=== PATIENT | female | born 1975 | race Caucasian/White ===

== ENCOUNTER 2016-11-12 07:56 | Emergency (ER) | payer BC ==
[2016-11-12 08:26] VITALS: RESP 18
--- NOTE | 2016-11-12 08:33 | ED ---
Extremity Problem HPI - General Chief complaint: Extremity Problem,Nontraumatic Stated complaint: Rt leg pain and swollen Time Seen by Provider: 11/12/16 08:27 Source: patient, RN notes reviewed Mode of arrival: wheelchair Limitations: no limitations - History of Present Illness Initial comments: 41-year-old female patient presents to emergency department today for complaints of pain in her right calf on the right lateral side. Patient states about a month ago she banged her leg, developed a significant bruise, and has had some discomfort since. Patient states starting yesterday the pain has worsened, her leg has developed a linear, reddened area, and she is concerned for blood clot. Patient states that she has had a superficial venous thrombosis in the past, and is unsure if she's had a DVT. Patient states pain worsens with walking or when she bears weight on the leg. Patient states the area is tender to the touch. Patient denies any headache, dizziness, weakness, chest pain, shortness of breath, abdominal pain, nausea, vomiting, constipation , diarrhea, dysuria, urinary frequency, urinary urgency. She denies any numbness or tingling to her right leg or foot. She denies any fever or chills. Patient denies need for pain medication at this time. - Related Data Previous Rx's Medication Instructions Recorded Ibuprofen [Motrin] 600 mg PO Q8HR PRN #30 tab 11/12/16 Allergies Allergy/AdvReac Type Severity Reaction Status Date / Time codeine Allergy Dyspnea Verified 11/12/16 08:26 Penicillins Allergy Rash/Hives Verified 11/12/16 08:26 Review of Systems ROS Statement: Those systems with pertinent positive or pertinent negative responses have been documented in the HPI. ROS Other: All systems not noted in ROS Statement are negative. Past Medical History Past Medical History: Deep Vein Thrombosis (DVT), GERD/Reflux Additional Past Medical History / Comment(s): sjogrens disease, hx migraines, pleurisy, DVY 2007 History of Any Multi-Drug Resistant Organisms: None Reported Past Surgical History: Appendectomy Additional Past Surgical History / Comment(s): lap band- later removed, D&C, rt leg vein stripping and laser, leep procedure Past Anesthesia/Blood Transfusion Reactions: Motion Sickness Past Psychological History: No Psychological Hx Reported Smoking Status: Never smoker Past Alcohol Use History: None Reported Past Drug Use History: None Reported - Past Family History Mother Family Medical History: No Reported History General Exam Limitations: no limitations General appearance: alert, in no apparent distress Eye exam: Present: normal appearance, PERRL, EOMI. Absent: scleral icterus, conjunctival injection, periorbital swelling ENT exam: Present: normal exam, normal oropharynx, mucous membranes moist Neck exam: Present: normal inspection. Absent: tenderness, meningismus, lymphadenopathy Respiratory exam: Present: normal lung sounds bilaterally. Absent: respiratory distress, wheezes, rales, rhonchi, stridor Cardiovascular Exam: Present: regular rate, normal rhythm, normal heart sounds. Absent: systolic murmur, diastolic murmur, rubs, gallop, clicks GI/Abdominal exam: Present: soft, normal bowel sounds. Absent: distended, tenderness, guarding, rebound, rigid Extremities exam: Present: full ROM, normal capillary refill, calf tenderness ( Right lateral, linear area of induration). Absent: pedal edema Neurological exam: Present: alert, oriented X3, CN II-XII intact Psychiatric exam: Present: normal affect, normal mood Skin exam: Present: warm, dry, intact, normal color. Absent: rash Course Vital Signs 11/12/16 08:23 Temperature 97.8 F Pulse Rate 87 Respiratory 18 Rate Blood Pressure 124/76 O2 Sat by Pulse 98 Oximetry Medical Decision Making - Medical Decision Making 41-year-old female presents emergency department for right calf pain. Patient has a superficial thrombophlebitis. Patient was treated with ibuprofen, compression and warm compressions. Return parameters discussed. Patient will follow-up with Dr. Brown her vascular surgeon if needed.. Disposition Clinical Impression: Superficial thrombophlebitis Disposition: HOME SELF-CARE Condition: Stable Instructions: Superficial Thrombophlebitis (ED) Additional Instructions: Please return to the Emergency Department if symptoms worsen or any other concerns. Prescriptions: Ibuprofen [Motrin] 600 mg PO Q8HR PRN #30 tab PRN Reason: Pain Time of Disposition: 09:18
--- NOTE | 2016-11-12 09:27 | US ---
EXAMINATION TYPE: US venous doppler duplex LE RT DATE OF EXAM: 11/12/2016 9:06 AM COMPARISON: No previous CLINICAL HISTORY: Pain. Area of pain and swelling right calf SIDE PERFORMED: Right VESSELS IMAGED: External Iliac Vein (EIV) Common Femoral Vein Deep Femoral Vein Greater Saphenous Vein * Femoral Vein Popliteal Vein Small Saphenous Vein * Proximal Calf Veins (* superficial vessels) Right Leg: Appears negative for DVT, scanned right calf area of pain/swelling: thrombus seen within superficial vessel IMPRESSION: No evidence of deep venous thrombosis. There is minimal superficial vein thrombosis in t he calf.
[2016-11-12 09:53] VITALS: BP 135/63; PULSE 60; TEMP 98
== END 2016-11-12 09:52 | disposition home or self-care (01) ==
LOC: EC 07:56
DX: I80.01 Phlebitis and thrombophlebitis of superficial vessels of right lower extremity (principal); Z88.5 Allergy status to narcotic agent; Z88.0 Allergy status to penicillin; Z86.718 Personal history of other venous thrombosis and embolism
CPT/HCPCS: 99283

== ENCOUNTER 2017-03-13 14:53 | Emergency (ER) | payer BC ==
[2017-03-13 15:06] VITALS: BP 137/90; PULSE 100; RESP 18; TEMP 98.5
[2017-03-13] MEDS ORDERED: KETOROLAC 60 MG/2 ML VIAL IM STA (15:20)
--- NOTE | 2017-03-13 15:38 | ED ---
General Adult HPI - General Chief complaint: Extremity Injury, Lower Stated complaint: L leg swelling Time Seen by Provider: 03/13/17 15:00 Source: patient, family, RN notes reviewed Mode of arrival: wheelchair Limitations: no limitations - History of Present Illness Initial comments: This is a 41-year-old female presents emergency Department complaining of left calf pain. Patient went to jump and then felt a spasm in her calf and after that the area Hard tender and she was unable to ambulate on that leg. Patient states she did not twist her leg it felt more stiff the pain was in her muscle on the calf. Patient denies any direct blunt trauma. - Related Data Home Medications Medication Instructions Recorded Confirmed Acetaminophen [Tylenol Extra 1,000 mg PO DAILY PRN 03/13/17 03/13/17 Strength] Previous Rx's Medication Instructions Recorded Diazepam [Valium] 5 mg PO Q6H #10 tab 03/13/17 Hydrocodone/Acetaminophen [[place] 1 each PO Q4HR PRN #20 tab 03/13/17 5-325] Ibuprofen [Motrin] 600 mg PO Q6HR PRN #20 tab 03/13/17 Allergies Allergy/AdvReac Type Severity Reaction Status Date / Time codeine Allergy Dyspnea Verified 03/13/17 15:12 Penicillins Allergy Rash/Hives Verified 03/13/17 15:12 Review of Systems ROS Statement: Those systems with pertinent positive or pertinent negative responses have been documented in the HPI. ROS Other: All systems not noted in ROS Statement are negative. Past Medical History Past Medical History: Deep Vein Thrombosis (DVT), GERD/Reflux Additional Past Medical History / Comment(s): sjogrens disease, hx migraines, pleurisy, DVY 2007 History of Any Multi-Drug Resistant Organisms: None Reported Past Surgical History: Appendectomy Additional Past Surgical History / Comment(s): lap band- later removed, D&C, rt leg vein stripping and laser, leep procedure Past Anesthesia/Blood Transfusion Reactions: Motion Sickness Past Psychological History: No Psychological Hx Reported Smoking Status: Never smoker Past Alcohol Use History: None Reported Past Drug Use History: None Reported - Past Family History Mother Family Medical History: No Reported History General Exam - General Exam Comments Initial Comments: GENERAL Patient is well-developed and well-nourished. Patient is in mild distress. EYES Patient's pupils are equal and round. Extraocular motion is intact SKIN Unremarkable NEURO The patient is alert and oriented 3 PYSCH Patient has normal interpersonal interactions. MUSCULOSKELETAL Patient's left calf is tender to touch and mildly swollen on the lateral aspect. Patient has no deficit in the Achilles tendon. Patient does have painful extension of the foot. Limitations: no limitations Course Vital Signs 03/13/17 15:02 Temperature 98.5 F Pulse Rate 100 Respiratory 18 Rate Blood Pressure 137/90 O2 Sat by Pulse 99 Oximetry Procedures - Orthopedic Splinting/Casting Injury #1 Side: left Lower Extremity Injury Location: lower leg Lower Extremity Immobilizer: posterior splint Additional Comments: Short leg splint. Patient's foot was splinted in plantar flexion. Disposition Clinical Impression: Gastrocnemius strain, left Disposition: HOME SELF-CARE Condition: Good Instructions: Muscle Strain (ED) Additional Instructions: Patient should use crutches and be nonweightbearing. Prescriptions: Diazepam [Valium] 5 mg PO Q6H #10 tab Hydrocodone/Acetaminophen [[place] 5-325] 1 each PO Q4HR PRN #20 tab PRN Reason: Pain Ibuprofen [Motrin] 600 mg PO Q6HR PRN #20 tab PRN Reason: For pain Referrals: Raphael Dickerson DO [Doctor of Osteopathic Medicine] - 1-2 days Time of Disposition: 16:09
[2017-03-13] MEDS ORDERED: HYDROmorphone 1 MG/ML 1 ML SYRINGE IM STA (15:41)
[2017-03-13] MEDS ORDERED: DIAZEPAM 5 MG TAB PO STA (15:41)
== END 2017-03-13 16:41 | disposition home or self-care (01) ==
LOC: EC 14:53
DX: S86.812A Strain of other muscle(s) and tendon(s) at lower leg level, left leg, initial encounter (principal); Z88.0 Allergy status to penicillin; Z88.5 Allergy status to narcotic agent; X50.9XXA Other and unspecified overexertion or strenuous movements or postures, initial encounter; Y93.02 Activity, running; Y92.016 Swimming-pool in single-family (private) house or garden as the place of occurrence of the external cause
CPT/HCPCS: 99283; 29515; 96372 ×2; J1885; J1170

== ENCOUNTER → 2017-03-27 | Outpatient (CLI) | payer BC ==
[2017-03-27 14:02] VITALS: BP 133/83; PULSE 78; RESP 20; TEMP 98.2; BMI 37.4
--- NOTE | 2017-03-27 14:22 | P.HPBAR ---
Bariatric H&P - History & Physicial H&P Date: 03/27/17 History & Physicial: Visit/CC: Patient initial contact: Initial weight: Initial weight in pounds: Height: Initial BMI: Last weight: Current weight: Current weight in pounds: Current BMI: [place] body weight (based on NIH guidelines): Excess body weight loss: The patient is a 41 year-old F who presents for Bariatric Assessment. Patient is well known to our service. The patient underwent a lap scopic banding in 2005 for suspected gastric prolapse. She was able to lose weight down to approximately 150 pounds at one point. The patient was then having issues with worsening reflux, dysphagia, odynophagia, and aspiration. She actually during that time was seen by a seniour insight manager and there was some thought that she may have Sjogren's disease. Her band was subsequently removed following that. She has had progressive weight gain and 14 cm time. Only minimal reflux symptoms at this point. She jordin interested in sleeve gastrectomy at this point. Does not likely long-term sequela related to the gastric bypass she states. She requires a 6 month supervised weight loss program that she has not started. She did have an upper endoscopy in 2014 showing gastritis. She does have a history of both superficial and deep venous thrombosis in the past. These were typically after venous related procedures Review of Systems The patient denies any acute changes in vision or hearing, no dysphagia or odynophagia, no chest pain or shortness of breath, no dysuria or hematuria, no headache, no runny nose, no rectal bleeding or melena, no unexplained weight loss Past Medical History Past Medical History: Deep Vein Thrombosis (DVT), GERD/Reflux Additional Past Medical History / Comment(s): sjogrens disease, hx migraines, pleurisy, DVY 2007 History of Any Multi-Drug Resistant Organisms: None Reported Past Surgical History: Appendectomy Additional Past Surgical History / Comment(s): lap band- later removed, D&C, rt leg vein stripping and laser, leep procedure Past Anesthesia/Blood Transfusion Reactions: Motion Sickness Past Psychological History: No Psychological Hx Reported Smoking Status: Never smoker Past Alcohol Use History: None Reported Past Drug Use History: None Reported - Past Family History Mother Family Medical History: No Reported History Surgical - Exam Physical exam: General: Well-developed, well-nourished HEENT: Normocephalic, sclerae nonicteric Abdomen: Nontender, nondistended Extremities: No edema Neuro: Alert and oriented Bariatric Assessment & Plan (1) Morbid obesity Narrative/Plan: The options available to Omayra at this point were discussed in detail and these included the gastric bypass in the sleeve gastrectomy. The patient plans to consider this further but in the meanwhile will begin her 6 month supervised weight loss program. We'll plan a upper endoscopy in 4-5 months from now. If the patient is showing any interest in gastric bypass we'll make the appropriate consultations. The risks of the procedure were discussed in detail today but will be repeated with her really. The risks specific to her of DVT, poor weight loss, GERD, and dysphagia related to possible Sjogren's disease were discussed. She is going to consider those risks further. Status: Acute Bariatric Checklist Checklist: Plan: Checklist: EGD: 1. Hiatal hernia: 2. H. Pylori: HgbA1c: Vitamin D: Smoking: Never smoker Primary care physician referral: Psychiatry clearance: Cardiology clearance: Sleep study: Diet journal: VTE risk score: VTE risk level: Rehab needs at discharge:
== END | disposition home or self-care (01) ==
LOC: BARWHC3 13:45
PROVIDERS: ATTEND Surgery
DX: Z01.818 Encounter for other preprocedural examination (principal); E66.01 Morbid (severe) obesity due to excess calories; Z86.718 Personal history of other venous thrombosis and embolism
CPT/HCPCS: 99201

== ENCOUNTER → 2017-05-25 | Outpatient (CLI) | payer BC ==
[2017-05-25 10:23] LABS: Basophils % (A) 1 %; CH 34.7; CHCM 35.2; Eosinophils # (A) 0.1 k/uL (0-0.7); Eosinophils % (A) 2 %; HCT 44.4 % (34.0-46.0); HDW 2.94; HGB 15.2 gm/dL (11.4-16.0); Luc # (Auto) 0.13; Luc % (Auto) 3; Lymphocytes # (A) 1.8 k/uL (1.0-4.8); Lymphocytes % (A) 41 %; MCH 33.9 pg (25.0-35.0); MCHC 34.2 g/dL (31.0-37.0); Mean Platelet Volume 6.8; Monocytes # (A) 0.2 k/uL (0-1.0); Monocytes % (A) 6 %; Neutrophils # (A) 2.1 k/uL (1.3-7.7); Neutrophils % (A) 48 %; RBC 4.49 m/uL (3.80-5.40); RDW 12.6 % (11.5-15.5); WBC 4.3 k/uL (3.8-10.6)
[2017-05-25 10:37] LABS: ALT 30 U/L (9-52); AST 23 U/L (14-36); Alkaline Phosphatase 68 U/L (38-126); Anion Gap 11 mmol/L; Blood Urea Nitrogen 16 mg/dL (7-17); Carbon Dioxide 26 mmol/L (22-30); Chloride 105 mmol/L (98-107); Cholesterol 205 mg/dL (<200); Glucose 94 mg/dL (74-99); HDL Cholesterol 62 mg/dL (40-60); Non-African American GFR(MDRD) >60 (>60 ml/min/1.73 sqM); Sodium 142 mmol/L (137-145); Total Bilirubin 0.7 mg/dL (0.2-1.3); Total Protein 7.7 g/dL (6.3-8.2)
[2017-05-25 12:02] LABS: Erythrocyte Sedimentation Rate 11 mm/hr (0-20)
[2017-05-25 16:46] LABS: ANA w/Reflex to Titer POSITIVE (NEGATIVE)
== END | disposition home or self-care (01) ==
LOC: LABWHC1 08:28
PROVIDERS: ATTEND Internal Medicine
DX: Z00.00 Encounter for general adult medical examination without abnormal findings (principal); G43.909 Migraine, unspecified, not intractable, without status migrainosus; E78.5 Hyperlipidemia, unspecified
CPT/HCPCS: 36415; 80053; 80061; 84439; 84443; 85025; 85652; 86038; 86039

== ENCOUNTER 2017-09-07 10:41 | Day surgery (SDC) | payer BC ==
[2017-09-06 09:08] VITALS: BMI 39.6
[~2017-09-07 10:41] MED LIST: DEXAMETHASONE SOD PHOSPHATE 10 MG/ML 1 ML VIAL IV ONE; ONDANSETRON 4 MG/2 ML VIAL IVP ONE
[2017-09-07 11:05] VITALS: RESP 16; TEMP 97.6
[2017-09-07] MEDS: LACTATED RINGERS 1,000 ML IV SCH ×2 (11:08→12:21)
[2017-09-07] MEDS ORDERED: LIDOCAINE 1% INJ 10MG/ML (20 ML MDV) ONE (12:23)
[2017-09-07] MEDS ORDERED: PROPOFOL 10 MG/ML 20 ML VIAL IV ONE (12:23)
--- NOTE | 2017-09-07 12:28 | P.GSHP ---
History of Present Illness H&P Date: 09/07/17 Chief Complaint: GERD, obesity Patient here today for upper endoscopy. She is interested in proceeding with sleeve gastrectomy. She has considered gastric bypass feels that is too aggressive for her. No abdominal pain currently. Some reflux at times. Past Medical History Past Medical History: Deep Vein Thrombosis (DVT), GERD/Reflux, Neurologic Disorder Additional Past Medical History / Comment(s): sjogrens disease, hx migraines, pleurisy, DVT 2007 History of Any Multi-Drug Resistant Organisms: None Reported Past Surgical History: Appendectomy, Bariatric Surgery Additional Past Surgical History / Comment(s): lap band- later removed, D&C, rt leg vein stripping and laser, leep procedure, COLONOSCOPY AND EGD Past Anesthesia/Blood Transfusion Reactions: Motion Sickness Smoking Status: Never smoker - Past Family History Mother Family Medical History: No Reported History Medications and Allergies Home Medications Medication Instructions Recorded Confirmed Type Amitriptyline HCl 10 mg PO HS 09/06/17 09/06/17 History Rizatriptan Benzoate [Rizatriptan] 10 mg PO DAILY PRN 09/06/17 09/06/17 History Topiramate [Topamax] 25 mg PO BID 09/06/17 09/07/17 History Allergies Allergy/AdvReac Type Severity Reaction Status Date / Time codeine Allergy Dyspnea Verified 09/07/17 11:03 Penicillins Allergy Rash/Hives Verified 09/07/17 11:03 Surgical - Exam Vital Signs Temp Pulse Resp BP Pulse Ox 97.6 F 79 16 145/75 98 09/07/17 11:04 09/07/17 11:04 09/07/17 11:04 09/07/17 11:04 09/07/17 11:04 Physical exam: General: Well-developed, well-nourished HEENT: Normocephalic, sclerae nonicteric Abdomen: Nontender, nondistended Extremities: No edema Neuro: Alert and oriented Assessment and Plan (1) GERD (gastroesophageal reflux disease) Narrative/Plan: Will proceed with upper endoscopy at this time. Current Visit: Yes Status: Acute Code(s): K21.9 - GASTRO-ESOPHAGEAL REFLUX DISEASE WITHOUT ESOPHAGITIS SNOMED Code(s): 339965483
--- NOTE | 2017-09-07 12:41 | P.PCN ---
Date of Procedure: 09/07/17 Procedure(s) Performed: Preoperative Dx: GERD, presurgical Postoperative Dx: Mild gastritis Procedure: EGD with Bx Anesthesia: Sedation Endoscopist: Dr. Valdez Specimens: antrum Endoscopic Procedure: The patient was on the endoscopy table in the left decubitus position. The Olympus gastroscope was inserted into the oropharynx and passed under direct visualization to the region of the third portion of the duodenum. From that point the scope was slowly withdrawn inspecting all surfaces carefully. There were no neoplastic inflammatory or polypoid lesions throughout the duodenum. The pylorus was widely patent. The stomach was carefully inspected. There was mild gastritis present. A biopsy of the antrum took place to rule out H. pylori. retroflexion revealed Evidence of a previous band plication. No hiatal hernia was seen. The esophagus was then carefully examined. There were no neoplastic inflammatory or polypoid lesions throughout the visualized esophagus. The patient was then taken to the recovery room in stable condition per anesthesia guidelines. Recommendations: await biopsy results. Follow-up in the bariatric center.
[2017-09-07 13:11] VITALS: BP 130/69; PULSE 76
== END 2017-09-07 13:26 | disposition home or self-care (01) ==
LOC: ORWHC2ENDO 10:41
PROVIDERS: ATTEND Surgery
DX: K29.70 Gastritis, unspecified, without bleeding (principal); E66.9 Obesity, unspecified; Z68.39 Body mass index [BMI] 39.0-39.9, adult; M35.00 Sjogren syndrome, unspecified; Z86.718 Personal history of other venous thrombosis and embolism; Z87.09 Personal history of other diseases of the respiratory system; Z79.899 Other long term (current) drug therapy; Z88.5 Allergy status to narcotic agent; Z88.0 Allergy status to penicillin
CPT/HCPCS: 81025; 88305; 88342; 43239; J1100; J2405; J2001; J2704

== ENCOUNTER → 2017-09-10 | Outpatient (CLI) | payer BC ==
[2017-09-10 13:26] VITALS: BMI 40.1
== END | disposition home or self-care (01) ==
LOC: BARWHC3 08:47
PROVIDERS: ATTEND Surgery
DX: E66.01 Morbid (severe) obesity due to excess calories (principal); Z68.41 Body mass index [BMI] 40.0-44.9, adult; Z71.3 Dietary counseling and surveillance
CPT/HCPCS: 97804

== ENCOUNTER → 2017-10-02 | Outpatient (CLI) | payer BC ==
[2017-10-02 14:31] VITALS: BP 154/77; PULSE 90; RESP 16; BMI 39.5
--- NOTE | 2017-10-02 14:58 | P.BASOAP ---
Subjective Progress Note Date: 10/02/17 Principal diagnosis: Morbid obesity Patient returns after recent upper endoscopy. She remains very excited about upcoming sleeve gastrectomy. Her upper endoscopy showed gastritis. H. pylori negative. She is tentatively scheduled for sleeve gastrectomy on 11/05. No new symptoms or medical issues. Objective - Vital Signs Vital signs: Vital Signs Temp Pulse 90 10/02/17 14:27 Resp 16 10/02/17 14:27 BP 154/77 10/02/17 14:27 Pulse Ox Intake & Output 10/01/17 10/02/17 10/02/17 18:59 06:59 18:59 Weight 109.429 kg - Exam Abdomen: Soft, nontender, nondistended Assessment/Plan (1) Morbid obesity Narrative/Plan: Will tentatively plan sleeve gastrectomy on 11/05. The risk profile form was reviewed with her in detail. The risks of bleeding, infection, stenosis, stricture, leak, abscess, fistula formation, peritonitis, poor weight loss, reflux, vomiting, conversion to an open procedure, aborting sleeve gastrectomy, MS, PE, DVT, and were discussed. The patient understands and wishes to proceed. Plan: Date: 10/02/17 Initial Weight: 103.691 kg Initial BMI: 37.4 Current Weight: 109.429 kg Current BMI: 39.5 Type of Surgery: Total Volume in Band: Previous Volume: Volume Removed: Volume Added: Band Size:
== END | disposition home or self-care (01) ==
LOC: BARWHC3 13:49
PROVIDERS: ATTEND Surgery
DX: E66.01 Morbid (severe) obesity due to excess calories (principal); Z01.812 Encounter for preprocedural laboratory examination; Z68.39 Body mass index [BMI] 39.0-39.9, adult
CPT/HCPCS: 99211

== ENCOUNTER → 2017-10-20 | Outpatient (CLI) | payer BC ==
[2017-10-20 13:07] LABS: Basophils % (A) 0 %; Eosinophils # (A) 0.1 k/uL (0-0.7); Eosinophils % (A) 1 %; Lymphocytes # (A) 1.9 k/uL (1.0-4.8); Lymphocytes % (A) 34 %; MCH 32.4 pg (25.0-35.0); MCHC 34.7 g/dL (31.0-37.0); MCV 93.3 fL (80.0-100.0); Mean Platelet Volume 7.3; Monocytes # (A) 0.3 k/uL (0-1.0); Monocytes % (A) 6 %; Neutrophils # (A) 3.3 k/uL (1.3-7.7); Neutrophils % (A) 58 %; Platelet Count 230 k/uL (150-450); RBC 4.61 m/uL (3.80-5.40); RDW 12.4 % (11.5-15.5); WBC 5.7 k/uL (3.8-10.6)
[2017-10-20 13:16] LABS: ALT 26 U/L (9-52); AST 20 U/L (14-36); Albumin 4.3 g/dL (3.5-5.0); Alkaline Phosphatase 73 U/L (38-126); Anion Gap 9 mmol/L; Blood Urea Nitrogen 15 mg/dL (7-17); Calcium 9.7 mg/dL (8.4-10.2); Carbon Dioxide 27 mmol/L (22-30); Chloride 106 mmol/L (98-107); Glucose 86 mg/dL (74-99); Potassium 4.4 mmol/L (3.5-5.1); Sodium 142 mmol/L (137-145); Total Bilirubin 0.7 mg/dL (0.2-1.3); Total Protein 7.4 g/dL (6.3-8.2)
== END | disposition home or self-care (01) ==
LOC: LABPAT 12:16
PROVIDERS: ATTEND Surgery
DX: Z01.818 Encounter for other preprocedural examination (principal); Z01.812 Encounter for preprocedural laboratory examination
CPT/HCPCS: 36415; 80053; 85025; 93005

== ENCOUNTER 2017-11-05 10:43 | Inpatient (IN) | payer BC ==
[~2017-11-05 10:43] MED LIST changes: +ENOXAPARIN 40 MG/0.4 ML SYRINGE SQ ONE; +MIDAZOLAM 2 MG/2 ML VIAL IV PRN; -ONDANSETRON 4 MG/2 ML VIAL IVP ONE; +SCOPOLAMINE 1.5MG/72HR PATCH TRANSDERM ONE; +ceFAZolin IN SWFI 2 GM/20 ML SYRINGE IVP ONE; +fentaNYL (PF) 50 MCG/ML 2 ML AMP IV PRN
[2017-11-05] MEDS: LACTATED RINGERS 1,000 ML IV SCH (12:00)
[2017-11-05] MEDS ORDERED: LIDOCAINE 1% 20 ML VIAL (10MG/ML) FOR IV START INTRADERMA ONE (12:01)
[2017-11-05] MEDS: ONDANSETRON 4 MG/2 ML VIAL IVP ONE ×2 (12:07→16:24)
--- NOTE | 2017-11-05 12:29 | P.GSHP ---
History of Present Illness H&P Date: 11/05/17 Chief Complaint: Morbid obesity Patient presents today for elective sleeve gastrectomy. She is known to our service from previous bariatric procedure. She underwent laparoscopic banding in 2005. She was able to lose significant weight with that. Her band was removed proximally 3 years ago for regurgitation and vomiting. At that time CAT scan suggested the presence of the gastric prolapse. She is not interested in gastric bypass. Recent upper endoscopy performed in August showed no definite hiatal hernia. The previous plication was evident. This did appears to be slightly larger as expected with her prior prolapse. She does have a history of previous superficial and deep venous thrombosis. The DVT was apparently after a vein stripping. No current symptoms of dysphagia. Questionable history of Sjogren's in the past. Past Medical History Past Medical History: Deep Vein Thrombosis (DVT), GERD/Reflux, Neurologic Disorder Additional Past Medical History / Comment(s): sjogrens disease, hx migraines, pleurisy, DVT 2007 History of Any Multi-Drug Resistant Organisms: None Reported Past Surgical History: Appendectomy, Bariatric Surgery Additional Past Surgical History / Comment(s): lap band- later removed, D&C, rt leg vein stripping and laser, leep procedure, COLONOSCOPY AND EGD Past Anesthesia/Blood Transfusion Reactions: Motion Sickness Smoking Status: Never smoker - Past Family History Mother Family Medical History: No Reported History Medications and Allergies Home Medications Medication Instructions Recorded Confirmed Type Amitriptyline HCl 10 mg PO HS PRN 09/06/17 11/05/17 History Rizatriptan Benzoate [Rizatriptan] 10 mg PO DAILY PRN 09/06/17 11/05/17 History Acetaminophen [Tylenol] 500 mg PO Q4-6H PRN 10/30/17 11/05/17 History Multivitamin/Iron/Folic Acid 1 each PO DAILY 10/30/17 10/30/17 History [Centrum Adults Tablet] Allergies Allergy/AdvReac Type Severity Reaction Status Date / Time codeine Allergy Dyspnea Verified 10/30/17 14:25 Penicillins Allergy Rash/Hives Verified 10/30/17 14:25 Surgical - Exam Vital Signs Temp Pulse Resp BP Pulse Ox 96.5 F L 77 16 163/95 99 11/05/17 11:41 11/05/17 11:41 11/05/17 11:41 11/05/17 11:41 11/05/17 11:41 Physical exam: General: Well-developed, well-nourished HEENT: Normocephalic, sclerae nonicteric Abdomen: Nontender, nondistended Extremities: No edema Neuro: Alert and oriented Assessment and Plan (1) Morbid obesity Narrative/Plan: Will proceed with sleeve gastrectomy at this time. The risks of bleeding, infection, stenosis, stricture, leak, abscess, fistula formation, peritonitis, poor weight loss, reflux, vomiting, conversion to an open procedure, aborting sleeve gastrectomy, AR, PE, DVT, and were discussed. The patient understands and wishes to proceed. Current Visit: No Status: Acute Code(s): E66.01 - MORBID (SEVERE) OBESITY DUE TO EXCESS CALORIES SNOMED Code(s): 492599958
[2017-11-05] MEDS ORDERED: HYDROmorphone (PF) 1 MG/ML ONE (13:16)
[2017-11-05] MEDS ORDERED: LIDOCAINE 1% INJ 10MG/ML (20 ML MDV) ONE (13:16)
[2017-11-05] MEDS ORDERED: GLYCOPYRROLATE 0.2 MG/ML 2 ML VIAL ONE (13:16)
[2017-11-05] MEDS ORDERED: NEOSTIGMINE 1 MG/ML 10 ML VIAL ONE (13:16)
[2017-11-05] MEDS ORDERED: fentaNYL (PF) 50 MCG/ML 2 ML AMP ONE (13:16)
[2017-11-05] MEDS ORDERED: ROCURONIUM BROMIDE 10 MG/ML 10 ML VIAL IV ONE (13:16)
[2017-11-05] MEDS ORDERED: PROPOFOL 10 MG/ML 20 ML VIAL IV ONE (13:16)
[2017-11-05] MEDS ORDERED: MIDAZOLAM 2 MG/2 ML VIAL ONE (13:16)
[2017-11-05] MEDS ORDERED: BUPIVACAINE (PF) 0.25% 30 ML VIAL SQ ONE (13:42)
[2017-11-05] MEDS ORDERED: LACTATED RINGERS 1,000 ML IV ONE (14:27)
[2017-11-05] MEDS ORDERED: WATER IRRIGATION ONE ×2 (15:29)
[2017-11-05] MEDS ORDERED: METHYLENE BLUE IRRIGATION ONE ×2 (15:29)
[2017-11-05] MEDS ORDERED: DEXTROSE 5% IRRIGATION ONE ×2 (15:29)
[2017-11-05] MEDS ORDERED: NALOXONE 0.4 MG/ML 1 ML VIAL IV PRN (16:05)
[2017-11-05] MEDS ORDERED: MORPHINE SULFATE/PF 10MG/10ML VL IVP PRN (16:05)
[2017-11-05] MEDS ORDERED: HYOSCYAMINE ORAL DROPS 1.875 MG/15 ML BOTTLE PO PRN (16:05)
[2017-11-05] MEDS ORDERED: SIMETHICONE 40 MG/0.6 ML DROPS 2,000 MG/30 ML BOTTLE PO PRN (16:05)
[2017-11-05] MEDS ORDERED: diphenhydrAMINE 50 MG/ML 1 ML VIAL IVP PRN (16:05)
--- NOTE | 2017-11-05 16:12 | P.OP ---
Date of Procedure: 11/05/17 Procedure(s) Performed: PREOPERATIVE DIAGNOSIS: Morbid obesity POSTOPERATIVE DIAGNOSIS: Same PROCEDURE: Laparoscopic sleeve gastrectomy SURGEON: José Miguel EBL: Minimal ANESTHESIA: General COMPLICATIONS: None OPERATIVE PROCEDURE: Patient was placed in the operating table in the supine position. She was placed under general anesthesia at that time. The abdomen was prepped and draped in sterile fashion after the patient was placed in lithotomy. A 5 mm optical trocar was used to enter the abdominal cavity in the left upper quadrant. Insufflation took place to 15 millimeters mercury. An additional right subxiphoid 5 mm trocar was then placed under direct visualization and then removed. 2 additional 5 mm trochars were placed in the right upper quadrant and left upper quadrant under direct visualization and a 15 mm trocar in the supraumbilical location. The liver was retracted using a medium Luigi liver retractor through the right subxiphoid trocar site. There were minimal adhesions between the prior gastric band site in the left lobe of the liver which were lysed sharply. The patient's gastric plication was somewhat densely closed although able to be mobilized using a combination of blunt dissection and sharp dissection. The hiatus was inspected. The patient had no visible hiatal hernia At that point I moved to the mid aspect of the greater curvature the stomach. The short gastric vasculature was divided using a LigaSure device proximally. I then switched and divided the short gastrics distally to a 3-4 cm from the pylorus. The dissection took place up to the left diaphragmatic crura at that point. The posterior short gastrics were likewise divided using the LigaSure device. Once the stomach was fully mobilized the blunt tipped 40-Montserratian bougie dilator was advanced into the stomach and advanced all the way to the prepyloric location. A black echelon 60 stapler was utilized and fired tangentially across the antrum taking care to avoid narrowing at the incisura angularis. Subsequent firings of the stapler took place. A total of 5 green echelon 60 staplers with seam guard took place proximally staying on the outer edge of our dilator. The oral gastric tube was reinserted. The stomach was insufflated with approximately 100 mL of methylene blue. No evidence of leak or obstruction was seen. The distal aspect of the sleeve was then reapproximated to the gastrosplenic and gastrocolic ligament using a short running 2-0 strata fix suture. Tisseel fibrin glue was used along the length of the staple line. The stomach remnant was removed from the 15 mm trocar site without difficulty. The fascia at the 15 more site was closed using interrupted 0 Vicryl sutures with the laparoscopic suture passer and Aldo Raul technique. The insufflation was evacuated. The skin at all 5 incisions were closed using 4-0 Monocryl sutures. Steri-Strips and sterile dressings were then applied. DISPOSITION: Stable to recovery room
[2017-11-05] MEDS ORDERED: PROMETHAZINE INJ 25 MG/ML 1 ML VIAL IVPB ONE (17:05)
[2017-11-05] MEDS ORDERED: ACETAMINOPHEN IV (For NPO) 1,000 MG in EMPTY BAG 1 BAG IVPB ONE (18:30)
[2017-11-05] MEDS: KETOROLAC 30 MG/ML 1 ML VIAL IVP SCH ×2 (21:11→23:41)
[2017-11-05] MEDS: ALBUTEROL NEBULIZED 2.5 MG/3 ML INHALATION SCH (21:15)
[2017-11-05] MEDS: 0.9% NACL WITH KCL 20 MEQ/L 1,000 ML IV SCH (21:42)
[2017-11-06] MEDS: ONDANSETRON 4 MG/2 ML VIAL IVP PRN ×3 (03:07→20:32)
[2017-11-06] MEDS: 0.9% NACL WITH KCL 20 MEQ/L 1,000 ML IV SCH (03:10)
[2017-11-06] MEDS: LACTATED RINGERS 1,000 ML IV SCH (05:38)
[2017-11-06] MEDS: KETOROLAC 30 MG/ML 1 ML VIAL IVP SCH ×4 (05:41→23:27)
[2017-11-06 07:14] LABS: Anion Gap 14 mmol/L; Blood Urea Nitrogen 11 mg/dL (7-17); Calcium 9.2 mg/dL (8.4-10.2); Carbon Dioxide 19 mmol/L (22-30); Chloride 106 mmol/L (98-107); Magnesium 1.7 mg/dL (1.6-2.3); Phosphorus 3.7 mg/dL (2.5-4.5); Potassium 4.2 mmol/L (3.5-5.1); Sodium 139 mmol/L (137-145)
[2017-11-06] MEDS: ENOXAPARIN 40 MG/0.4 ML SYRINGE SQ SCH ×2 (07:21→21:23)
[2017-11-06 07:39] LABS: Basophils % (A) 0 %; Eosinophils % (A) 0 %; HGB 14.3 gm/dL (11.4-16.0); Lymphocytes # (A) 1.3 k/uL (1.0-4.8); Lymphocytes % (A) 16 %; MCH 32.6 pg (25.0-35.0); MCHC 35.8 g/dL (31.0-37.0); MCV 91.1 fL (80.0-100.0); Mean Platelet Volume 7.8; Monocytes # (A) 0.5 k/uL (0-1.0); Monocytes % (A) 6 %; Neutrophils % (A) 77 %; Platelet Count 195 k/uL (150-450); RBC 4.39 m/uL (3.80-5.40); RDW 12.3 % (11.5-15.5); WBC 7.9 k/uL (3.8-10.6)
[2017-11-06] MEDS: ALBUTEROL NEBULIZED 2.5 MG/3 ML INHALATION SCH ×4 (10:00→22:00)
--- NOTE | 2017-11-06 11:20 | FL ---
EXAMINATION TYPE: FL UGI DATE OF EXAM: 11/06/2017 LIMITED UGI: CLINICAL HISTORY: History of lap band for 10 years removed 2014 with gastric sleeve surgery yesterda y. TECHNIQUE: Limited esophagram is performed utilizing 50 oz of Omnipaque 350. A total of 78 seconds o f fluoroscopic time was utilized during procedure. 15 spot images were saved. COMPARISON: None. FINDINGS: The patient swallowed contrast without difficulty or delay. Esophageal peristalsis and mo tility proximally are within normal limits. There is delay in flow of contrast at diaphragmatic hiatu s with small irregular outpouching or gastric diverticulum along the left lateral margin identified. Contrast pools in distal esophagus which is dilated with reflux into mid esophagus. Finding presumed related to having lap band for 10 years. There is eventual flow across diaphragmatic hiatus and subse quent good flow at proximal and distal anastomosis of sleeve into remnant antrum and duodenal sweep. No contrast extravasation to suggest leak is identified. Patient remained fairly asymptomatic during procedure. Patient became nauseous after procedure. IMPRESSION: No evidence of leak or significant obstruction at sleeve status post recent gastric sleev e surgery yesterday.
[2017-11-06] MEDS ORDERED: HYDROmorphone 4 MG TABLET PO PRN (11:41)
[2017-11-06] MEDS: PANTOPRAZOLE 40 MG/10 ML VIAL IV SCH (11:45)
[2017-11-06 14:43] VITALS: RESP 16
[2017-11-06 15:00] VITALS: BMI 36.6
--- NOTE | 2017-11-06 15:26 | P.CNPUL ---
History of Present Illness Consult date: 11/06/17 Requesting physician: uCrtis Valdez Reason for consult: other Chief complaint: Laparoscopic sleeve gastrectomy for morbid obesity History of present illness: Omayra is a 42-year-old white female patient that follows with Dr. Marroquin for primary care services, has a past medical history of morbid obesity, with previous laparoscopic banding in 2006 subsequent removal of the band 3 years ago for regurgitation and vomiting. Other medical history includes DVTs, GERD/ reflux, Sjogren's disease, cerebral meningioma and history of MTHFR mutation. Patient is a lifetime nonsmoker, does not have any underlying chronic lung disease, is not on home oxygen or inhalers or nebulizers. After removal of the gastric band, patient has been struggling with significant weight gain and was unable to lose weight despite trying different modalities of diets and exercise. Patient underwent laparoscopic sleeve gastrectomy by Dr. Valdez on , tolerated the procedure well and we are seeing the patient today for medical management. Patient is stable, denies any acute distress, she states yesterday postop she was having some incisional discomfort in her abdomen, today her pain is better controlled. She is able to achieve [id number] on her incentive spirometry. She is on room air, denies any dyspnea, denies any chest pain. She is afebrile, hemodynamically stable. She is tolerating ice chips, has not passed any gas yet. Abdominal laparoscopic incisions are clean dry and intact, Steri-Strips are intact, there incisions are covered with surgical dressings. Patient is on Lovenox for DVT prophylaxis, he is receiving Toradol, Dilaudid for pain control. She is on nebulized treatments 4 times a day, IV Kefzol, Protonix. She is doing very well, she is getting ready to get up and ambulate. Denies any specific complaints today. GI series from this morning shows no evidence of leak or significant obstruction at sleeve status post gastric sleeve surgery. Review of Systems All systems: negative Constitutional: Denies chills, Denies fever Eyes: denies blurred vision, denies pain Ears, nose, mouth and throat: Denies headache, Denies sore throat Cardiovascular: Denies chest pain, Denies shortness of breath Respiratory: Denies cough Gastrointestinal: Denies abdominal pain, Denies diarrhea, Denies nausea, Denies vomiting Genitourinary: Denies dysuria, Denies hematuria Musculoskeletal: Denies myalgias Integumentary: Denies pruritus, Denies rash Neurological: Denies numbness, Denies weakness Psychiatric: Denies anxiety, Denies depression Endocrine: Denies fatigue, Denies weight change Past Medical History Past Medical History: Deep Vein Thrombosis (DVT), GERD/Reflux, Neurologic Disorder Additional Past Medical History / Comment(s): sjogrens disease, hx migraines, pleurisy, DVT 2007 History of Any Multi-Drug Resistant Organisms: None Reported Past Surgical History: Appendectomy, Bariatric Surgery Additional Past Surgical History / Comment(s): lap band- later removed, D&C, rt leg vein stripping and laser, leep procedure, COLONOSCOPY AND EGD Past Anesthesia/Blood Transfusion Reactions: Motion Sickness Past Psychological History: No Psychological Hx Reported Smoking Status: Never smoker Past Alcohol Use History: Occasional Past Drug Use History: None Reported - Past Family History Mother Family Medical History: No Reported History Medications and Allergies Home Medications Medication Instructions Recorded Confirmed Type Amitriptyline HCl 10 mg PO HS PRN 09/06/17 11/05/17 History Rizatriptan Benzoate [Rizatriptan] 10 mg PO DAILY PRN 09/06/17 11/05/17 History Acetaminophen [Tylenol] 500 mg PO Q4-6H PRN 10/30/17 11/05/17 History Multivitamin/Iron/Folic Acid 1 tab PO DAILY 10/30/17 11/05/17 History [Centrum Adults Tablet] Bisacodyl [Dulcolax] 5 mg PO DAILY PRN #10 tablet. 11/05/17 Rx Hydrocodone/Acetaminophen [[place] 1 - 2 each PO Q4HR PRN #30 tab 11/05/17 Rx 5-325] Omeprazole [PriLOSEC] 20 mg PO AC-BRKFST #90 cap 11/05/17 Rx Ondansetron Odt [Zofran Odt] 4 mg PO Q8HR PRN #9 tab 11/05/17 Rx Simethicone 40 mg/0.6 ml Drops 40 mg PO PCHS PRN #30 ml 11/05/17 Rx [Mylicon Drops] Allergies Allergy/AdvReac Type Severity Reaction Status Date / Time codeine Allergy Dyspnea Verified 10/30/17 14:25 Penicillins Allergy Rash/Hives Verified 10/30/17 14:25 Physical Exam Vitals: Vital Signs Temp Pulse Pulse Resp BP Pulse Ox Pulse Ox 11/06/17 14:42 98.9 F 71 16 125/78 99 11/06/17 12:36 72 11/06/17 12:27 72 11/06/17 11:15 98.2 F 84 130/78 97 11/06/17 09:33 100 11/06/17 08:30 100 11/06/17 03:20 98.1 F 65 17 133/81 98 11/05/17 21:15 96 11/05/17 20:00 79 132/80 100 11/05/17 19:45 100 135/84 100 11/05/17 19:30 103 H 135/84 100 11/05/17 19:15 85 134/86 100 11/05/17 19:00 98 149/74 100 11/05/17 18:45 100 135/84 100 11/05/17 18:30 95 134/84 100 11/05/17 17:35 72 16 140/73 95 11/05/17 17:20 76 16 132/70 97 11/05/17 17:08 81 16 137/73 94 L 11/05/17 16:53 76 16 136/77 96 11/05/17 16:38 74 16 127/63 98 11/05/17 16:23 91 16 127/63 95 11/05/17 16:08 98 F 87 12 135/79 97 Intake and Output 11/06/17 11/06/17 11/06/17 06:59 14:59 22:59 Intake Total 1200 Balance 1200 Intake: Intake, IV Titration 1200 Amount 0.9% NaCl with KCl 20 Meq 1200 /l 1,000 ml @ 150 mls/hr IV .Q6H40M [facility] Rx#: [id number] Other: # Voids 3 2 Weight 103.1 kg GENERAL EXAM: Alert, pleasant, 42-year-old white female comfortable in no apparent distress. HEAD: Normocephalic/atraumatic. EYES: Normal reaction of pupils, equal size. Conjunctiva pink, sclera white. NOSE: Clear with pink turbinates. THROAT: No erythema or exudates. NECK: No masses, no JVD, no thyroid enlargement, no adenopathy. CHEST: No chest wall deformity. Symmetrical expansion. LUNGS: Equal air entry with no crackles, wheeze, rhonchi or dullness. CVS: Regular rate and rhythm, normal S1 and S2, no gallops, no murmurs, no rubs ABDOMEN: Soft, slightly tender, postsurgical. No hepatosplenomegaly, normal bowel sounds, no guarding or rigidity. Laparoscopic incisions are clean dry and intact, well approximated, Steri-Strips are intact, incisions are covered with surgical dressings, no drainage noted. EXTREMITIES: No clubbing, no edema, no cyanosis, 2+ pulses and upper and lower extremities. MUSCULOSKELETAL: Muscle strength and tone normal. SPINE: No scoliosis or deformity SKIN: No rashes CENTRAL NERVOUS SYSTEM: Alert and oriented -3. No focal deficits, tone is normal in all 4 extremities. PSYCHIATRIC: Alert and oriented -3. Appropriate affect. Intact judgment and insight. Results - Laboratory Findings CBC and BMP: 11/06/17 06:40 11/06/17 06:40 Abnormal lab findings: Abnormal Labs 11/06/17 06:40 Carbon Dioxide 19 L - Diagnostic Findings Additional studies: Upper GI series reviewed Assessment and Plan Plan: Assessment: #1. Morbid obesity, status post laparoscopic sleeve gastrectomy, post-op day 1 #2. History of laparoscopic banding, with subsequent removal of the band due to regurgitation and vomiting #3. GERD/reflux #4. Sjogren's disease #5. Migraine cephalgia with aura #6. Cerebral meningioma #7. History of MTHFR syndrome #8. History of DVT #9. Lifetime nonsmoker Plan: Continue current plan of care, continue nebulized treatments incentive spirometry, continue Kefzol. Patient denies any dyspnea, she is on room air, vital signs are stable. Increase ambulation. Pain control, GI/DVT prophylaxis. Continue to follow I performed a history & physical examination of the patient and discussed their management with my nurse practitioner, Krysta Landry. I reviewed the nurse practitioner's note and agree with the documented findings and plan of care. Lung sounds are clear. The findings and the impression was discussed with the patient. I attest to the documentation by the nurse practitioner. Time with Patient: Less than 30
--- NOTE | 2017-11-06 15:29 | P.PN ---
<Angeli Preston - Last Filed: 11/06/17 15:17> Subjective Progress Note Date: 11/06/17 42-year-old female seen and examined. Patient states she has been up ambulating in the bran several times this morning. Denies any nausea vomiting. Patient states passing gas no stool no difficulty in urinating abdominal surgical incision sites dry abdomen soft. Status post November 05 Laparoscopic sleeve gastrectomy for morbid obesity Objective - Vital Signs Vital signs: Vital Signs Temp 98.9 F 11/06/17 14:42 Pulse 71 11/06/17 14:42 Resp 16 11/06/17 14:42 BP 125/78 11/06/17 14:42 Pulse Ox 99 11/06/17 14:42 Intake & Output 11/05/17 11/06/17 11/06/17 18:59 06:59 18:59 Intake Total 1901 2200 Output Total 15 Balance 1886 2200 Weight 103.1 kg 103.1 kg Intake: IV 1901 Intake, IV Titration 2200 Amount 0.9% NaCl with KCl 20 Meq 2200 /l 1,000 ml @ 150 mls/hr IV .Q6H40M [facility] Rx#: [id number] Output: Estimated Blood Loss 15 Other: # Voids 3 2 - Exam Physical exam Abdomen soft nontender nondistended surgical tenderness appropriate surgical dressings dry states passing gas no stool urinating no difficulty tolerating bariatric clear liquid diet pain medication effective for pain control - Labs CBC & Chem 7: 11/06/17 06:40 11/06/17 06:40 Labs: Abnormal Lab Results - Last 24 Hours (Table) 11/06/17 Range/Units 06:40 Carbon Dioxide 19 L (22-30) mmol/L Assessment and Plan Assessment: Impression Laparoscopic sleeve gastrectomy for morbid obesity done November 05 History of laparoscopic banding in 2005 for weight loss Morbid obesity Plan Continue postop bariatric care Bariatric clear diet as ordered Pain control Increase activity DVT and GI prophylaxis The above impression and plan of care have been discussed and directed by signing physician. Angeli Preston nurse practitioner acting as scribe for signing physician. <Curtis Valdez - Last Filed: 11/06/17 16:21> Objective - Vital Signs Vital signs: Vital Signs Temp 98.9 F 11/06/17 14:42 Pulse 64 11/06/17 16:17 Resp 16 11/06/17 14:42 BP 125/78 11/06/17 14:42 Pulse Ox 99 11/06/17 14:42 Intake & Output 11/05/17 11/06/17 11/06/17 18:59 06:59 18:59 Intake Total 1901 2200 Output Total 15 Balance 188 2200 Weight 103.1 kg 103.1 kg Intake: IV 1901 Intake, IV Titration 2200 Amount 0.9% NaCl with KCl 20 Meq 2200 /l 1,000 ml @ 150 mls/hr IV .Q6H40M [facility] Rx#: [id number] Output: Estimated Blood Loss 15 Other: Voiding Method Toilet # Voids 3 2 - Labs CBC & Chem 7: 11/06/17 06:40 11/06/17 06:40 Labs: Abnormal Lab Results - Last 24 Hours (Table) 11/06/17 Range/Units 06:40 Carbon Dioxide 19 L (22-30) mmol/L Assessment and Plan Assessment: As above. Patient doing well today. Did have some nausea and vomiting last night that is improved currently. Tolerating clears. Upper GI shows no evidence of leak or significant obstruction. Continue ambulation. Continue liquid diet. (1) Morbid obesity Current Visit: Yes Status: Acute Code(s): E66.01 - MORBID (SEVERE) OBESITY DUE TO EXCESS CALORIES SNOMED Code(s): 242778749
[2017-11-06] MEDS: 1: MVI, ADULT NO.4 WITH VIT K 10 ML, THIAMINE 100 MG, FOLIC ACID 1 MG, POTASSIUM CHLORID IV SCH ×12 (16:09)
[2017-11-07] MEDS: 1: MVI, ADULT NO.4 WITH VIT K 10 ML, THIAMINE 100 MG, FOLIC ACID 1 MG, POTASSIUM CHLORID IV SCH ×24 (02:14→17:55)
[2017-11-07] MEDS: KETOROLAC 30 MG/ML 1 ML VIAL IVP SCH ×2 (05:39→11:54)
[2017-11-07] MEDS: ALBUTEROL NEBULIZED 2.5 MG/3 ML INHALATION SCH ×4 (07:27→18:37)
[2017-11-07] MEDS ORDERED: BISACODYL 5 MG TABLET.DR PO PRN (08:00)
[2017-11-07] MEDS: ENOXAPARIN 40 MG/0.4 ML SYRINGE SQ SCH ×2 (08:43→22:29)
[2017-11-07] MEDS: PANTOPRAZOLE 40 MG/10 ML VIAL IV SCH (08:43)
[2017-11-07] MEDS: ONDANSETRON 4 MG/2 ML VIAL IVP PRN (11:54)
--- NOTE | 2017-11-07 12:01 | P.PN ---
Subjective Progress Note Date: 11/07/17 Principal diagnosis: Morbid obesity Patient states she feels better today. Pain is diminished. Much less nausea. She did have 1 episode of emesis to foamy liquid. She is afebrile. Labs are pending. She is tolerated approximate 10 ounces of liquid yesterday. Objective - Vital Signs Vital signs: Vital Signs Temp 98 F 11/07/17 07:00 Pulse 70 11/07/17 11:21 Resp 16 11/07/17 07:00 BP 121/72 11/07/17 07:00 Pulse Ox 97 11/07/17 07:31 Intake & Output 11/06/17 11/07/17 11/07/17 18:59 06:59 18:59 Intake Total 0 3488.333 1200.333 Balance 0 3488.333 1200.333 Weight 103.1 kg Intake: Intake, IV Titration 3008.333 963.333 Amount 0.9% NaCl with KCl 20 Meq 1000 /l 1,000 ml @ 150 mls/hr IV .Q6H40M [facility] Rx#: [id number] Mvi, Adult No.4 with Vit 2008.333 963.333 K 10 ml Thiamine 100 mg Folic Acid 1 mg Potassium Chloride 20 meq In Sodium Chloride 0.9% 1, 000 ml @ 100 mls/hr IV . BY DURATION [facility] Rx#: [id number] Oral 0 480 237 Other: Voiding Method Toilet Toilet Toilet # Voids 2 3 - Exam Abdomen: Soft, nondistended, mild incisional tenderness, incisions clean and dry - Labs CBC & Chem 7: 11/06/17 06:40 11/06/17 06:40 Assessment and Plan (1) Morbid obesity Narrative/Plan: Continue bariatric liquid diet. Continue ambulation. Check morning CBC. Current Visit: Yes Status: Acute Code(s): E66.01 - MORBID (SEVERE) OBESITY DUE TO EXCESS CALORIES SNOMED Code(s): 961985845
[2017-11-07 12:02] LABS: Anion Gap 10 mmol/L; Blood Urea Nitrogen 13 mg/dL (7-17); Carbon Dioxide 21 mmol/L (22-30); Chloride 111 mmol/L (98-107); Glucose 80 mg/dL (74-99); Potassium 3.9 mmol/L (3.5-5.1); Sodium 142 mmol/L (137-145)
--- NOTE | 2017-11-07 13:20 | P.PN ---
Subjective Progress Note Date: 11/07/17 Principal diagnosis: Laparoscopic sleeve gastrectomy for morbid obesity Omayra is a 42-year-old white female patient that follows with Dr. Marroquin for primary care services, has a past medical history of morbid obesity, with previous laparoscopic banding in 2005 subsequent removal of the band 3 years ago for regurgitation and vomiting. Other medical history includes DVTs, GERD/ reflux, Sjogren's disease, cerebral meningioma and history of MTHFR mutation. Patient is a lifetime nonsmoker, does not have any underlying chronic lung disease, is not on home oxygen or inhalers or nebulizers. After removal of the gastric band, patient has been struggling with significant weight gain and was unable to lose weight despite trying different modalities of diets and exercise. Patient underwent laparoscopic sleeve gastrectomy by Dr. Valdez on , tolerated the procedure well and we are seeing the patient today for medical management. Patient is stable, denies any acute distress, she states yesterday postop she was having some incisional discomfort in her abdomen, today her pain is better controlled. She is able to achieve [id number] on her incentive spirometry. She is on room air, denies any dyspnea, denies any chest pain. She is afebrile, hemodynamically stable. She is tolerating ice chips, has not passed any gas yet. Abdominal laparoscopic incisions are clean dry and intact, Steri-Strips are intact, there incisions are covered with surgical dressings. Patient is on Lovenox for DVT prophylaxis, he is receiving Toradol, Dilaudid for pain control. She is on nebulized treatments 4 times a day, IV Kefzol, Protonix. She is doing very well, she is getting ready to get up and ambulate. Denies any specific complaints today. GI series from this morning shows no evidence of leak or significant obstruction at sleeve status post gastric sleeve surgery. On 11/07/2017 patient seen in follow-up. She has been ambulating around the unit, tolerating activity well. Her oxygen is on standby, her pulse ox is 97% on room air, she is able to achieve [id number] on her incentive spirometry today. Lung sounds are clear. Patient is starting to pass flatus. She is tolerating clear liquid diet. Abdominal incisions are clean dry and intact, Steri-Strips are intact. Patient remains on IV Rocephin, nebulized treatments, Lovenox for DVT prophylaxis, Protonix. Her abdominal pain is controlled. No acute events overnight. Anticipate discharge home possibly later today. Objective - Vital Signs Vital signs: Vital Signs Temp 98 F 11/07/17 07:00 Pulse 70 11/07/17 11:21 Resp 16 11/07/17 07:00 BP 121/72 11/07/17 07:00 Pulse Ox 97 11/07/17 07:31 Intake & Output 11/06/17 11/07/17 11/07/17 18:59 06:59 18:59 Intake Total 0 3488.333 1200.333 Balance 0 3488.333 1200.333 Weight 103.1 kg Intake: Intake, IV Titration 3008.333 963.333 Amount 0.9% NaCl with KCl 20 Meq 1000 /l 1,000 ml @ 150 mls/hr IV .Q6H40M [facility] Rx#: [id number] Mvi, Adult No.4 with Vit 2008.333 963.333 K 10 ml Thiamine 100 mg Folic Acid 1 mg Potassium Chloride 20 meq In Sodium Chloride 0.9% 1, 000 ml @ 100 mls/hr IV . BY DURATION [facility] Rx#: [id number] Oral 0 480 237 Other: Voiding Method Toilet Toilet Toilet # Voids 2 3 - Exam GENERAL EXAM: Alert, pleasant, 42-year-old white female comfortable in no apparent distress. HEAD: Normocephalic/atraumatic. EYES: Normal reaction of pupils, equal size. Conjunctiva pink, sclera white. NOSE: Clear with pink turbinates. THROAT: No erythema or exudates. NECK: No masses, no JVD, no thyroid enlargement, no adenopathy. CHEST: No chest wall deformity. Symmetrical expansion. LUNGS: Equal air entry with no crackles, wheeze, rhonchi or dullness. CVS: Regular rate and rhythm, normal S1 and S2, no gallops, no murmurs, no rubs ABDOMEN: Soft, slightly tender, postsurgical. No hepatosplenomegaly, normal bowel sounds, no guarding or rigidity. Laparoscopic incisions are clean dry and intact, well approximated, Steri-Strips are intact, incisions are covered with surgical dressings, no drainage noted. EXTREMITIES: No clubbing, no edema, no cyanosis, 2+ pulses and upper and lower extremities. MUSCULOSKELETAL: Muscle strength and tone normal. SPINE: No scoliosis or deformity SKIN: No rashes CENTRAL NERVOUS SYSTEM: Alert and oriented -3. No focal deficits, tone is normal in all 4 extremities. PSYCHIATRIC: Alert and oriented -3. Appropriate affect. Intact judgment and insight. - Labs CBC & Chem 7: 11/06/17 06:40 11/07/17 11:02 Labs: Abnormal Lab Results - Last 24 Hours (Table) 11/07/17 Range/Units 11:02 Chloride 111 H (98-107) mmol/L Carbon Dioxide 21 L (22-30) mmol/L Assessment and Plan Plan: Assessment: #1. Morbid obesity, status post laparoscopic sleeve gastrectomy, post-op day 2 #2. History of laparoscopic banding, with subsequent removal of the band due to regurgitation and vomiting #3. GERD/reflux #4. Sjogren's disease #5. Migraine cephalgia with aura #6. Cerebral meningioma #7. History of MTHFR syndrome #8. History of DVT #9. Lifetime nonsmoker Plan: Continue current plan of care, continue encouraging activity, ambulation, incentive spirometry. Patient remains stable, vital signs are stable. No acute events overnight. Denies any specific complaints. Tolerating clear liquid diet. From medical standpoint patient is stable for discharge home today , once cleared by surgery. Follow-up with Dr. Dumont in the office in 7 days I performed a history & physical examination of the patient and discussed their management with my nurse practitioner, Krysta Landry. I reviewed the nurse practitioner's note and agree with the documented findings and plan of care. Lung sounds are clear. The findings and the impression was discussed with the patient. I attest to the documentation by the nurse practitioner. Time with Patient: Less than 30
[2017-11-07] MEDS ORDERED: HYDROcodone/APAP 5-325MG 1 EACH TAB PO PRN (21:30)
[2017-11-07] MEDS ORDERED: KETOROLAC 30 MG/ML 1 ML VIAL IVP ONE (22:00)
[2017-11-08 06:52] LABS: Basophils % (A) 0 %; Eosinophils # (A) 0.1 k/uL (0-0.7); Eosinophils % (A) 1 %; HCT 35.9 % (34.0-46.0); Lymphocytes # (A) 1.6 k/uL (1.0-4.8); Lymphocytes % (A) 26 %; MCH 33.4 pg (25.0-35.0); MCHC 36.3 g/dL (31.0-37.0); MCV 92.1 fL (80.0-100.0); Mean Platelet Volume 7.7; Monocytes # (A) 0.4 k/uL (0-1.0); Monocytes % (A) 6 %; Neutrophils # (A) 3.8 k/uL (1.3-7.7); Neutrophils % (A) 65 %; Platelet Count 152 k/uL (150-450); RDW 12.5 % (11.5-15.5); WBC 5.9 k/uL (3.8-10.6)
[2017-11-08] MEDS: ALBUTEROL NEBULIZED 2.5 MG/3 ML INHALATION SCH ×2 (07:27→11:13)
[2017-11-08 08:01] VITALS: BP 131/79; TEMP 97.8
[2017-11-08] MEDS: PANTOPRAZOLE 40 MG/10 ML VIAL IV SCH (09:23)
--- NOTE | 2017-11-08 10:40 | P.PN ---
Subjective Progress Note Date: 11/08/17 Principal diagnosis: Laparoscopic sleeve gastrectomy for morbid obesity Omayra is a 42-year-old white female patient that follows with Dr. Marroquin for primary care services, has a past medical history of morbid obesity, with previous laparoscopic banding in 2005 subsequent removal of the band 3 years ago for regurgitation and vomiting. Other medical history includes DVTs, GERD/ reflux, Sjogren's disease, cerebral meningioma and history of MTHFR mutation. Patient is a lifetime nonsmoker, does not have any underlying chronic lung disease, is not on home oxygen or inhalers or nebulizers. After removal of the gastric band, patient has been struggling with significant weight gain and was unable to lose weight despite trying different modalities of diets and exercise. Patient underwent laparoscopic sleeve gastrectomy by Dr. Valdez on , tolerated the procedure well and we are seeing the patient today for medical management. Patient is stable, denies any acute distress, she states yesterday postop she was having some incisional discomfort in her abdomen, today her pain is better controlled. She is able to achieve [id number] on her incentive spirometry. She is on room air, denies any dyspnea, denies any chest pain. She is afebrile, hemodynamically stable. She is tolerating ice chips, has not passed any gas yet. Abdominal laparoscopic incisions are clean dry and intact, Steri-Strips are intact, there incisions are covered with surgical dressings. Patient is on Lovenox for DVT prophylaxis, he is receiving Toradol, Dilaudid for pain control. She is on nebulized treatments 4 times a day, IV Kefzol, Protonix. She is doing very well, she is getting ready to get up and ambulate. Denies any specific complaints today. GI series from this morning shows no evidence of leak or significant obstruction at sleeve status post gastric sleeve surgery. On 11/07/2017 patient seen in follow-up. She has been ambulating around the unit, tolerating activity well. Her oxygen is on standby, her pulse ox is 97% on room air, she is able to achieve [id number] on her incentive spirometry today. Lung sounds are clear. Patient is starting to pass flatus. She is tolerating clear liquid diet. Abdominal incisions are clean dry and intact, Steri-Strips are intact. Patient remains on IV Rocephin, nebulized treatments, Lovenox for DVT prophylaxis, Protonix. Her abdominal pain is controlled. No acute events overnight. Anticipate discharge home possibly later today. On 11/08/2017 patient seen in follow-up. She had an episode of vomiting yesterday, and she was kept for 1 more day for monitoring. Today she denies any acute distress. She is resting in bed, vital signs are stable, she is on room air the pulse ox on the percent. She is afebrile. Hemodynamically stable. Lung sounds are clear, incentive spirometry effort today is [id number]. Abdomen is soft and nontender, laparoscopic incisions are clean dry and intact , Steri-Strips are intact. Patient is tolerating bariatric clear liquid diet. She did have a small bowel movement this morning. Denies any dyspnea, has been ambulating extensively around the unit, and tolerating activity well. From pulmonary standpoint patient is stable for discharge once cleared by surgery. Objective - Vital Signs Vital signs: Vital Signs Temp 97.8 F 11/08/17 07:00 Pulse 80 11/08/17 07:38 Resp 16 11/08/17 00:48 BP 131/79 11/08/17 07:00 Pulse Ox 100 11/08/17 07:00 Intake & Output 11/07/17 11/08/17 11/08/17 18:59 06:59 18:59 Intake Total 1200.333 180 Balance 1200.333 180 Intake: Intake, IV Titration 963.333 Amount Mvi, Adult No.4 with Vit 963.333 K 10 ml Thiamine 100 mg Folic Acid 1 mg Potassium Chloride 20 meq In Sodium Chloride 0.9% 1, 000 ml @ 100 mls/hr IV . BY DURATION [facility] [place] Rx#: [id number] Oral 237 180 Other: Voiding Method Toilet Toilet # Voids 2 # Bowel Movements 1 - Exam GENERAL EXAM: Alert, pleasant, 42-year-old white female comfortable in no apparent distress. HEAD: Normocephalic/atraumatic. EYES: Normal reaction of pupils, equal size. Conjunctiva pink, sclera white. NOSE: Clear with pink turbinates. THROAT: No erythema or exudates. NECK: No masses, no JVD, no thyroid enlargement, no adenopathy. CHEST: No chest wall deformity. Symmetrical expansion. LUNGS: Equal air entry with no crackles, wheeze, rhonchi or dullness. CVS: Regular rate and rhythm, normal S1 and S2, no gallops, no murmurs, no rubs ABDOMEN: Soft, slightly tender, postsurgical. No hepatosplenomegaly, normal bowel sounds, no guarding or rigidity. Laparoscopic incisions are clean dry and intact, well approximated, Steri-Strips are intact, incisions are covered with surgical dressings, no drainage noted. EXTREMITIES: No clubbing, no edema, no cyanosis, 2+ pulses and upper and lower extremities. MUSCULOSKELETAL: Muscle strength and tone normal. SPINE: No scoliosis or deformity SKIN: No rashes CENTRAL NERVOUS SYSTEM: Alert and oriented -3. No focal deficits, tone is normal in all 4 extremities. PSYCHIATRIC: Alert and oriented -3. Appropriate affect. Intact judgment and insight. - Labs CBC & Chem 7: 11/08/17 06:26 11/07/17 11:02 Labs: Abnormal Lab Results - Last 24 Hours (Table) 11/07/17 Range/Units 11:02 Chloride 111 H (98-107) mmol/L Carbon Dioxide 21 L (22-30) mmol/L Assessment and Plan Plan: Assessment: #1. Morbid obesity, status post laparoscopic sleeve gastrectomy, post-op day 3 #2. History of laparoscopic banding, with subsequent removal of the band due to regurgitation and vomiting #3. GERD/reflux #4. Sjogren's disease #5. Migraine cephalgia with aura #6. Cerebral meningioma #7. History of MTHFR syndrome #8. History of DVT #9. Lifetime nonsmoker Plan: Patient had one episode of vomiting yesterday, no nausea or vomiting today. She is tolerating clear barrier to diet. Vital signs are stable, she is on room air, compliant with incentive spirometry, has been ambulating extensively around the unit, tolerating it well. Once cleared by surgery patient is stable for discharge. Follow-up with Dr. Dumont in the office in one week I performed a history & physical examination of the patient and discussed their management with my nurse practitioner, Krysta Landry. I reviewed the nurse practitioner's note and agree with the documented findings and plan of care. Lung sounds are clear. The findings and the impression was discussed with the patient. I attest to the documentation by the nurse practitioner. Time with Patient: Less than 30
--- NOTE | 2017-11-08 10:47 | P.DS ---
<Angeli Preston - Last Filed: 11/08/17 10:33> Providers Date of admission: 11/05/17 11:01 Expected date of discharge: 11/08/17 Attending physician: Curtis Valdez Consults: 11/05/17 16:05 Consult Physician Routine Consulting Provider: Nicolasa Marroquin Consult Reason/Comments: Medical management Do you want consulting provider notified?: Yes Primary care physician: Nicolasa Mar[facility]quin [facility] Course: Pleasant 42-year-old female who presented on the day of admission for an elective sleeve gastrectomy done on November 05 for morbid obesity. Patient has history of previous bariatric procedures. Underwent a lap banding in 2005 was able to lose weight with the procedure. The lap band was removed approximately 3 years ago for symptomatic regurg and vomiting. Patient does have a history of a previous superficial DVT. Involving the right leg. underwent the procedure sleeve gastrectomy on November 05 with no postop events. On the day of discharge patient was ambulatory on the unit tolerating the bariatric clear liquid diet no nausea no vomiting. The white count was down to 5.9 afebrile states had a bowel movement urinating no difficulty. Was felt to be appropriate to be discharged home. Patient states that she was able to drink this morning 320 mL of liquid with no difficulty Impression discharge diagnosis Morbid obesity due to excessive calories History of a DVT right legLaparoscopic sleeve gastrectomy for morbid obesity done November 05 History of laparoscopic banding in 2005 for weight loss history of MTHFR mutation. The above impression and plan of care have been discussed and directed by signing physician. Angeli Preston nurse practitioner acting as scribe for signing physician. Plan - Discharge Summary Discharge Rx Participant: Yes New Discharge Prescriptions: New Bisacodyl [Dulcolax] 5 mg PO DAILY PRN #10 tablet.dr PRN Reason: Constipation Hydrocodone/Acetaminophen [Armington 5-325] 1 - 2 each PO Q4HR PRN #30 tab PRN Reason: pain Omeprazole [PriLOSEC] 20 mg PO AC-BRKFST #90 cap Ondansetron Odt [Zofran Odt] 4 mg PO Q8HR PRN #9 tab PRN Reason: Nausea Simethicone 40 mg/0.6 ml Drops [Mylicon Drops] 40 mg PO PCHS PRN #30 ml PRN Reason: Gas Enoxaparin [Lovenox] 40 mg SQ Q12H #20 syringe No Action Amitriptyline HCl 10 mg PO HS PRN PRN Reason: Insomnia Rizatriptan Benzoate [Rizatriptan] 10 mg PO DAILY PRN PRN Reason: MIGRAINES Acetaminophen [Tylenol] 500 mg PO Q4-6H PRN PRN Reason: Pain Multivitamin/Iron/Folic Acid [Centrum Adults Tablet] 1 tab PO DAILY Discharge Medication List Amitriptyline HCl 10 mg PO HS PRN 09/06/17 [History] Rizatriptan Benzoate [Rizatriptan] 10 mg PO DAILY PRN 09/06/17 [History] Acetaminophen [Tylenol] 500 mg PO Q4-6H PRN 10/30/17 [History] Multivitamin/Iron/Folic Acid [Centrum Adults Tablet] 1 tab PO DAILY 10/30/17 [ History] Bisacodyl [Dulcolax] 5 mg PO DAILY PRN #10 tablet. 11/05/17 [Rx] Hydrocodone/Acetaminophen [Armington 5-325] 1 - 2 each PO Q4HR PRN #30 tab 11/05/17 [Rx] Omeprazole [PriLOSEC] 20 mg PO AC-BRKFST #90 cap 11/05/17 [Rx] Ondansetron Odt [Zofran Odt] 4 mg PO Q8HR PRN #9 tab 11/05/17 [Rx] Simethicone 40 mg/0.6 ml Drops [Mylicon Drops] 40 mg PO PCHS PRN #30 ml [Rx] Enoxaparin [Lovenox] 40 mg SQ Q12H #20 syringe 11/08/17 [Rx] Follow up Appointment(s)/Referral(s): Nicolasa Marroquin MD [Primary Care Provider] - 11/15/17 2:00 pm [facility] [NON-STAFF] - 11/13/17 2:00 pm (Appointment [facility] with Dr[facility]dez [facility]) Patient Instructions/Handouts: Enoxaparin (By injection), Nutrition after Bariatric Surgery (DC), Bowel Management After Bariatric Surgery (DC), Laparoscopic Sleeve Gastrectomy (DC) Discharge Disposition: HOME SELF-CARE <Curtis Valdez - Last Filed: 11/08/17 17:13> - Discharge Diagnosis(es) (1) Morbid obesity Status: Acute Hospital Course: As above. Patient doing much better today. Postoperative upper GI after sleeve gastrectomy showed no leak or obstruction. Initially she was having some dysphagia and intermittent nausea with occasional episodes of vomiting. The symptoms are improved. She is tolerating her liquid diet. She would like to go home today. Will send home with subcutaneous Lovenox injections. Follow- up one week.
[2017-11-08 11:23] VITALS: PULSE 80
[2017-11-08] MEDS: 1: MVI, ADULT NO.4 WITH VIT K 10 ML, THIAMINE 100 MG, FOLIC ACID 1 MG, POTASSIUM CHLORID IV SCH ×6 (12:42)
[2017-11-08] MEDS: ENOXAPARIN 40 MG/0.4 ML SYRINGE SQ SCH (13:14)
[2017-11-08] MEDS ORDERED: KETOROLAC 30 MG/ML 1 ML VIAL IVP ONE (21:33)
== END 2017-11-08 13:28 | disposition home or self-care (01) | DRG 620 ==
LOC: 2ORWHC 11:01 → 3SUR 18:04
PROVIDERS: ADMIT Surgery; ATTEND Surgery
PROC: 0DB64Z3 Excision of Stomach, Percutaneous Endoscopic Approach, Vertical (ICD-10-PCS; principal; 2017-11-05 13:00)
DX: E66.01 Morbid (severe) obesity due to excess calories (principal); E72.12 Methylenetetrahydrofolate reductase deficiency; M35.00 Sjogren syndrome, unspecified; Z68.36 Body mass index [BMI] 36.0-36.9, adult; D32.0 Benign neoplasm of cerebral meninges; K21.9 Gastro-esophageal reflux disease without esophagitis; G43.909 Migraine, unspecified, not intractable, without status migrainosus; Z79.899 Other long term (current) drug therapy; Z86.718 Personal history of other venous thrombosis and embolism; Z88.5 Allergy status to narcotic agent; Z88.0 Allergy status to penicillin
CPT/HCPCS: 74240; 80048; 80051; 81025; 82310; 82565; 83735; 84100; 84520; 85025; 88307; 94640; 94760

== ENCOUNTER → 2017-11-13 | Outpatient (CLI) | payer BC ==
[2017-11-13 14:37] VITALS: BMI 35.4
[2017-11-13 15:04] VITALS: BP 119/63; PULSE 83; TEMP 98.4
--- NOTE | 2017-11-13 16:06 | P.BASOAP ---
Subjective Progress Note Date: 11/13/17 Principal diagnosis: Morbid obesity Patient doing well today. She is 1 week post sleeve gastrectomy. Denies nausea vomiting, no reflux, no pain. She is tolerating 50 ounces of liquids per day. She has lost proximally 30 pounds over the last 2-3 weeks. Objective - Vital Signs Vital signs: Vital Signs Temp 98.4 F 11/13/17 15:02 Pulse 83 11/13/17 15:02 Resp BP 119/63 11/13/17 15:02 Pulse Ox Intake & Output 11/12/17 11/13/17 11/13/17 18:59 06:59 18:59 Weight 97.976 kg - Exam Abdomen: Soft, nondistended, mild incisional tenderness, incisions clean and dry Assessment/Plan (1) Morbid obesity Narrative/Plan: Patient doing well today. Continue dietary and exercise regimen. The patient did not realize she should be taking her antiacid so we will start those now. Follow-up 2-3 weeks for reevaluation. Plan: Date: 11/13/17 Initial Weight: 103.691 kg Initial BMI: 37.4 Current Weight: 97.976 kg Current BMI: 35.4 Type of Surgery: Total Volume in Band: Previous Volume: Volume Removed: Volume Added: Band Size:
== END | disposition home or self-care (01) ==
LOC: BARWHC3 13:52
PROVIDERS: ATTEND Surgery
DX: E66.01 Morbid (severe) obesity due to excess calories (principal); Z68.35 Body mass index [BMI] 35.0-35.9, adult
CPT/HCPCS: 97803; 99211

== ENCOUNTER → 2017-11-27 | Outpatient (CLI) | payer BC ==
[2017-11-27 14:42] VITALS: BP 125/75; PULSE 73; RESP 16; TEMP 98; BMI 35.0
--- NOTE | 2017-11-27 16:20 | P.BASOAP ---
Subjective Progress Note Date: 11/27/17 Principal diagnosis: Morbid obesity Patient doing well today. She has had some difficulties taking an over 35 ounces of liquids daily. Denies dysphagia or odynophagia however. No abdominal pain. Mild constipation although improved. Some reflux symptoms while taking antiacids. Objective - Vital Signs Vital signs: Vital Signs Temp 98 F 11/27/17 14:39 Pulse 73 11/27/17 14:39 Resp 16 11/27/17 14:39 BP 125/75 11/27/17 14:39 Pulse Ox Intake & Output 11/26/17 11/27/17 11/27/17 18:59 06:59 18:59 Weight 97.069 kg - Exam Abdomen: Soft, nontender, nondistended, incision clean and dry Assessment/Plan (1) Morbid obesity Narrative/Plan: Patient will increase fluid intake. If unable to increase fluids further we'll consider IV hydration. Follow-up examination 2 weeks. We'll check one month labs at that time. Plan: Date: 11/27/17 Initial Weight: 103.691 kg Initial BMI: 37.4 Current Weight: 97.069 kg Current BMI: 35.0 Type of Surgery: Total Volume in Band: Previous Volume: Volume Removed: Volume Added: Band Size:
== END | disposition home or self-care (01) ==
LOC: BARWHC3 14:24
PROVIDERS: ATTEND Surgery
DX: Z09 Encounter for follow-up examination after completed treatment for conditions other than malignant neoplasm (principal); K95.09 Other complications of gastric band procedure; K21.9 Gastro-esophageal reflux disease without esophagitis; R63.8 Other symptoms and signs concerning food and fluid intake; E66.01 Morbid (severe) obesity due to excess calories; Z98.84 Bariatric surgery status; Z68.35 Body mass index [BMI] 35.0-35.9, adult
CPT/HCPCS: 99211

== ENCOUNTER → 2017-12-11 | Outpatient (CLI) | payer BC ==
[2017-12-11 16:11] VITALS: BP 131/76; PULSE 70; TEMP 97.9; BMI 32.8
--- NOTE | 2017-12-11 16:13 | P.BASOAP ---
Subjective Progress Note Date: 12/11/17 Principal diagnosis: Morbid obesity Patient doing much better this week. Better oral liquid intake. Protein and take is improving as well although probably in the 30-40 g per day range. Minimal heartburn symptoms. No nausea or vomiting. No pain. Due for one month labs. Objective - Vital Signs Vital signs: Vital Signs Temp 97.9 F 12/11/17 16:10 Pulse 70 12/11/17 16:10 Resp BP 131/76 12/11/17 16:10 Pulse Ox Intake & Output 12/10/17 12/11/17 12/11/17 18:59 06:59 18:59 Weight 95.254 kg - Exam Abdomen: Soft, nontender, nondistended, incisions clean and dry Assessment/Plan (1) Morbid obesity Narrative/Plan: Increase protein intake. Dietary evaluation today. We'll order one month labs. Follow-up evaluation for 6 weeks. Plan: Date: 12/11/17 Initial Weight: 103.691 kg Initial BMI: 35.8 Current Weight: 95.254 kg Current BMI: 32.8 Type of Surgery: Total Volume in Band: Previous Volume: Volume Removed: Volume Added: Band Size:
[2017-12-11 17:08] LABS: HGB 12.4 gm/dL (11.4-16.0); MCH 29.9 pg (25.0-35.0); MCHC 32.5 g/dL (31.0-37.0); MCV 92.1 fL (80.0-100.0); Mean Platelet Volume 7.9; Platelet Count 198 k/uL (150-450); Poikilocytosis Slight; RBC 4.13 m/uL (3.80-5.40); RDW 13.8 % (11.5-15.5); WBC 3.8 k/uL (3.8-10.6)
[2017-12-11 17:18] LABS: ALT 21 U/L (9-52); AST 19 U/L (14-36); Alkaline Phosphatase 65 U/L (38-126); Anion Gap 12 mmol/L; Blood Urea Nitrogen 14 mg/dL (7-17); Calcium 9.6 mg/dL (8.4-10.2); Carbon Dioxide 26 mmol/L (22-30); Chloride 102 mmol/L (98-107); Glucose 78 mg/dL (74-99); Sodium 140 mmol/L (137-145); Total Bilirubin 0.7 mg/dL (0.2-1.3); Total Protein 6.4 g/dL (6.3-8.2)
[2017-12-12 02:09] LABS: Vitamin D 25 Hydroxy 40.8 ng/mL (30.0-100.0)
[2017-12-12 02:16] LABS: Folate, Serum 11.6 ng/mL
== END | disposition home or self-care (01) ==
LOC: BARWHC3 15:47
PROVIDERS: ATTEND Surgery
DX: E66.01 Morbid (severe) obesity due to excess calories (principal); Z68.32 Body mass index [BMI] 32.0-32.9, adult
CPT/HCPCS: 36415; 80053; 82306; 82607; 82746; 83540; 84425; 85027; 97803; 99211

== ENCOUNTER → 2018-01-08 | Outpatient (CLI) | payer BC ==
[2018-01-08 16:02] VITALS: BP 155/70; PULSE 64; RESP 16; TEMP 98.1; BMI 32.4
--- NOTE | 2018-01-08 16:24 | P.BASOAP ---
Subjective Progress Note Date: 01/08/18 Principal diagnosis: Morbid obesity Patient doing well today. Better protein intake. Mild reflux. No vomiting. Still taking antacids daily. Denies fevers. 12 pound weight loss since last visit. Her 1 month labs were reviewed and appear normal. Objective - Vital Signs Vital signs: Vital Signs Temp 98.1 F 01/08/18 15:59 Pulse 64 01/08/18 15:59 Resp 16 01/08/18 15:59 BP 155/70 01/08/18 15:59 Pulse Ox Intake & Output 01/07/18 01/08/18 01/08/18 18:59 06:59 18:59 Weight 89.811 kg - Exam Abdomen: Soft, nontender, nondistended, incisions clean and dry Assessment/Plan (1) Morbid obesity Narrative/Plan: Patient doing well postoperative. Continue dietary and exercise regimen. Follow-up evaluation 4-6 weeks. Continue antiacids for now. Plan: Date: 01/08/18 Initial Weight: 103.691 kg Initial BMI: 37.4 Current Weight: 89.811 kg Current BMI: 32.4 Type of Surgery: Total Volume in Band: Previous Volume: Volume Removed: Volume Added: Band Size:
== END | disposition home or self-care (01) ==
LOC: BARWHC3 15:42
PROVIDERS: ATTEND Surgery
DX: E66.01 Morbid (severe) obesity due to excess calories (principal); Z68.32 Body mass index [BMI] 32.0-32.9, adult
CPT/HCPCS: 99211

== ENCOUNTER → 2018-02-12 | Outpatient (CLI) | payer BC ==
[2018-02-12 14:33] VITALS: BP 126/85; PULSE 70; RESP 16; TEMP 98; BMI 31.6
[2018-02-12 15:08] LABS: HGB 15.2 gm/dL (11.4-16.0); MCH 34.1 pg (25.0-35.0); MCHC 35.3 g/dL (31.0-37.0); MCV 96.6 fL (80.0-100.0); Mean Platelet Volume 7.2; Platelet Count 219 k/uL (150-450); RBC 4.45 m/uL (3.80-5.40); RDW 12.6 % (11.5-15.5); WBC 4.4 k/uL (3.8-10.6)
[2018-02-12 15:19] LABS: ALT 33 U/L (9-52); AST 26 U/L (14-36); Albumin 4.6 g/dL (3.5-5.0); Alkaline Phosphatase 69 U/L (38-126); Anion Gap 11 mmol/L; Blood Urea Nitrogen 12 mg/dL (7-17); Calcium 9.8 mg/dL (8.4-10.2); Carbon Dioxide 28 mmol/L (22-30); Chloride 101 mmol/L (98-107); Glucose 93 mg/dL (74-99); Potassium 4.4 mmol/L (3.5-5.1); Sodium 140 mmol/L (137-145); Total Bilirubin 0.8 mg/dL (0.2-1.3); Total Protein 7.4 g/dL (6.3-8.2)
--- NOTE | 2018-02-12 16:33 | P.BASOAP ---
Subjective Progress Note Date: 02/12/18 Principal diagnosis: Morbid obesity Patient doing well today. 5 pounds weight loss since last visit. Surgery initially in October of this year. Due for three-month lab works. She admits that she is not taking her multivitamins regularly. Still with mild intermittent reflux. No abdominal pain. Objective - Vital Signs Vital signs: Vital Signs Temp 98 F 02/12/18 14:29 Pulse 70 02/12/18 14:29 Resp 16 02/12/18 14:29 BP 126/85 02/12/18 14:29 Pulse Ox Intake & Output 02/11/18 02/12/18 02/12/18 18:59 06:59 18:59 Weight 87.543 kg - Exam Abdomen: Soft, nontender, nondistended - Labs CBC & Chem 7: 02/12/18 14:25 02/12/18 14:25 Assessment/Plan (1) Morbid obesity Narrative/Plan: Will check three-month labs at this time. Encouraged daily intake of multivitamin. Continue antiacids. Plan: Date: 02/12/18 Initial Weight: 103.691 kg Initial BMI: 37.4 Current Weight: 87.543 kg Current BMI: 31.6 Type of Surgery: Total Volume in Band: Previous Volume: Volume Removed: Volume Added: Band Size:
[2018-02-12 19:11] LABS: Folate, Serum 7.6 ng/mL; Vitamin D 25 Hydroxy 31.1 ng/mL (30.0-100.0)
[2018-02-13 01:57] LABS: Hemoglobin A1C 4.6 % (4.0-6.0)
== END | disposition home or self-care (01) ==
LOC: BARWHC3 13:50
PROVIDERS: ATTEND Surgery
DX: E66.01 Morbid (severe) obesity due to excess calories (principal); K91.2 Postsurgical malabsorption, not elsewhere classified; E55.9 Vitamin D deficiency, unspecified; Z68.31 Body mass index [BMI] 31.0-31.9, adult
CPT/HCPCS: 80053; 82306; 82607; 82746; 83036; 83540; 84425; 85027; 99211

== ENCOUNTER → 2018-04-02 | Outpatient (CLI) | payer BC ==
[2018-04-02 14:38] VITALS: BMI 31.4
[2018-04-02 15:28] VITALS: BP 120/70; PULSE 74; TEMP 98.2
--- NOTE | 2018-04-02 17:15 | P.BASOAP ---
Subjective Progress Note Date: 04/02/18 Principal diagnosis: Morbid obesity Patient here today for follow-up visit. She is doing well at this time. She has lost 2 pounds although believes its more than that because she is on her menstrual cycle. Occasional episodes of GERD symptoms. Denies pain. Objective - Vital Signs Vital signs: Vital Signs Temp 98.2 F 04/02/18 15:25 Pulse 74 04/02/18 15:25 Resp BP 120/70 04/02/18 15:25 Pulse Ox Intake & Output 04/01/18 04/02/18 04/02/18 18:59 06:59 18:59 Weight 86.818 kg - Exam Abdomen: Soft, nontender, nondistended Assessment/Plan (1) Morbid obesity Narrative/Plan: Patient doing well today. Continue antiacid therapy. Continue dietary and exercise regimen. Follow-up 6 weeks. We'll check 6 month labs at that time. Plan: Date: 04/02/18 Initial Weight: 103.691 kg Initial BMI: 37.4 Current Weight: 86.818 kg Current BMI: 31.4 Type of Surgery: Total Volume in Band: Previous Volume: Volume Removed: Volume Added: Band Size:
== END | disposition home or self-care (01) ==
LOC: BARWHC3 13:22
PROVIDERS: ATTEND Surgery
DX: E66.01 Morbid (severe) obesity due to excess calories (principal); Z68.31 Body mass index [BMI] 31.0-31.9, adult
CPT/HCPCS: 97803; 99211

== ENCOUNTER → 2018-08-27 | Outpatient (CLI) | payer BC ==
[2018-08-27 15:30] VITALS: BP 149/83; PULSE 76; TEMP 98; BMI 29.9
--- NOTE | 2018-08-27 16:40 | P.BASOAP ---
Subjective Progress Note Date: 08/27/18 Principal diagnosis: Morbid obesity Patient returns today for follow-up visit. Last visit in March. She missed her visit following that. She is overdue for 6 month labs. She has lost an additional 9 pounds since her last visit. She has very mild reflux. Still on antiacids. Denies nausea or vomiting. No pain. Objective - Vital Signs Vital signs: Vital Signs Temp 98.0 F 08/27/18 15:28 Pulse 76 08/27/18 15:28 Resp BP 149/83 08/27/18 15:28 Pulse Ox Intake & Output 08/26/18 08/27/18 08/27/18 18:59 06:59 18:59 Weight 82.917 kg - Exam Abdomen: Soft, nontender, nondistended Assessment/Plan (1) Morbid obesity Narrative/Plan: Patient continues to do well postoperatively. Continue dietary and exercise regimen. Patient exercising daily at this time. Continue antiacids. We'll check 6 month labs at this time. Follow-up 6-8 weeks. Plan: Date: 08/27/18 Initial Weight: 103.691 kg Initial BMI: 37.4 Current Weight: 82.917 kg Current BMI: 29.9 Type of Surgery: Total Volume in Band: Previous Volume: Volume Removed: Volume Added: Band Size:
[2018-08-27 17:25] LABS: HGB 13.6 gm/dL (11.4-16.0); MCH 33.3 pg (25.0-35.0); MCV 95.1 fL (80.0-100.0); Mean Platelet Volume 7.2; Platelet Count 235 k/uL (150-450); RDW 12.3 % (11.5-15.5); WBC 5.5 k/uL (3.8-10.6)
[2018-08-28 03:15] LABS: Folate, Serum 10.7 ng/mL
[2018-08-28 03:25] LABS: Albumin 4.4 g/dL (3.80-4.90); Albumin/Globulin Ratio 2.32 (1.20-2.10); Anion Gap 10.6 mmol/L (4.00-12.00); Calcium 9.3 mg/dL (8.7-10.3); Carbon Dioxide 25.4 mmol/L (21.6-31.8); Globulin 1.9 g/dL (1.6-3.3); Potassium 4.1 mmol/L (3.5-5.5); Total Bilirubin 0.8 mg/dL (0.3-1.2); Total Protein 6.3 g/dL (6.2-8.2)
[2018-08-29 07:04] LABS: Vitamin A 41 ug/dL (38-106)
[2018-08-29 07:16] LABS: Vitamin B1 62 ug/L (38-122)
== END | disposition home or self-care (01) ==
LOC: BARWHC3 15:17
PROVIDERS: ATTEND Surgery
DX: E66.01 Morbid (severe) obesity due to excess calories (principal); D50.8 Other iron deficiency anemias; E55.9 Vitamin D deficiency, unspecified; Z68.29 Body mass index [BMI] 29.0-29.9, adult
CPT/HCPCS: 36415; 80053; 82306; 82607; 82746; 83540; 84425; 84590; 85027; 97803; 99211

== ENCOUNTER → 2018-12-10 | Outpatient (CLI) | payer BC ==
--- NOTE | 2018-12-10 16:02 | P.BASOAP ---
Subjective Progress Note Date: 12/10/18 Principal diagnosis: Morbid obesity Patient returns for bariatric assessment. Doing well at this time. Last seen in August. No longer taking antiacids. Her labs checked last visit looked good. Denies heartburn. No vomiting. 1300 olga per day. Objective - Exam Abdomen: Soft, nontender, nondistended Assessment/Plan (1) Morbid obesity Narrative/Plan: Patient doing well postoperative. Continue dietary and exercise regimen. Follow-up 3 months. We'll check delayed one year labs at that time. Plan: Date: Initial Weight: 103.691 kg Initial BMI: Current Weight: Current BMI: Type of Surgery: Total Volume in Band: Previous Volume: Volume Removed: Volume Added: Band Size:
[2018-12-11 08:27] VITALS: BMI 29.9
[2018-12-11 09:04] VITALS: BP 145/92; PULSE 69; RESP 16; TEMP 98.1
== END | disposition home or self-care (01) ==
LOC: BARWHC3 15:17
PROVIDERS: ATTEND Surgery
DX: E66.01 Morbid (severe) obesity due to excess calories (principal)
CPT/HCPCS: 97803; 99211

== ENCOUNTER → 2023-04-17 | Outpatient (CLI) | payer BC ==
[2023-04-17 08:38] VITALS: BP 144/65; PULSE 69; RESP 17; TEMP 97.8
--- NOTE | 2023-04-17 09:34 | P.HPOB ---
History of Present Illness H&P Date: 04/17/23 Chief Complaint: The patient is here for her routine gynecologic exam and ma mmogram. This is a 47-year-old 021 with an LMP of 04/16/2023. The patient is here to establish with this office. It has been about 8 years since her last pelvic exam. She states her menstrual periods were regular up until about 1-1/2 years ago. During the past year she has skipped about 4 menstrual periods. She has had some mild hot flashes which are tolerable. She has noticed a decrease in sex drive. She states she has had some vaginal dryness but usually is able to achieve orgasm when sexually active. She and her use withdrawal for control. She is otherwise without gynecologic complaints. Review of Systems The patient's weight has been stable over the last year. She denies respiratory, cardiac, or G.I. problems. Past Medical History Past Medical History: GERD/Reflux, Neurologic Disorder Additional Past Medical History / Comment(s): sjogrens disease, hx migraines, pleurisy, superficial venous thrombosis 2007. PAST [employer] HISTORY: She has no history of STDs. History of Any Multi-Drug Resistant Organisms: None Reported Past Surgical History: Appendectomy, Bariatric Surgery Additional Past Surgical History / Comment(s): lap band- later removed, D&C, rt leg vein stripping and laser, leep procedure, COLONOSCOPY AND EGD sleeve gastrectomy 11-05-17 Past Anesthesia/Blood Transfusion Reactions: Motion Sickness Past Psychological History: No Psychological Hx Reported (She denies current depression.) Smoking Status: Never smoker Past Alcohol Use History: Occasional (0-4 per week) Past Drug Use History: None Reported Additional History: She has been since 1999. 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 - Past Family History Mother Family Medical History: Diabetes Mellitus Additional Family Medical History / Comment(s): Maternal grandmother had breast cancer and diabetes. Father Family Medical History: Hypertension Additional Family Medical History / Comment(s): Paternal grandmother had uterine cancer. Medications and Allergies Home Medications Medication Instructions Recorded Confirmed Type Acetaminophen [Tylenol] 500 mg PO Q4-6H PRN 10/30/17 04/17/23 History Allergies Allergy/AdvReac Type Severity Reaction Status Date / Time codeine Allergy Dyspnea Verified 04/17/23 08:35 Penicillins Allergy Rash/Hives Verified 04/17/23 08:35 Exam Vital Signs Temp Pulse Resp BP Pulse Ox 04/17/23 08:35 97.8 F 69 17 144/65 98 Intake and Output 04/16/23 04/17/23 04/17/23 22:59 06:59 14:59 Other: Weight 82.1 kg Height 5 feet 5 inches, weight 181 pounds, BMI 30.1. This is a well-developed well-nourished white female who is alert and oriented times 3 in no acute distress. HEENT: Within normal limits. NECK: Supple without mass or thyromegaly. CHEST AND LUNGS: Clear to auscultation. HEART: Regular rate and rhythm. BREASTS: Are without mass or discharge. AXILLARY EXAM: Negative for adenopathy. BACK: Negative for CVA tenderness. ABDOMEN: Soft, nontender, without palpable masses. PELVIC EXAM: Normal external genitalia. Cervix and vagina appear normal with a small amount of menstrual blood in the back of the vagina. There is no unusual discharge. There is no evidence of prolapse. The uterus is midposition, nongravid size and nontender. There are no palpable adnexal masses or tenderness. RECTAL EXAM: Rectovaginal exam is negative for mass or tenderness and is negati ve for occult blood. EXTREMITIES: Nontender. IMPRESSION: 1. 47-year-old perimenopausal female using withdrawal for control, with normal gynecologic exam. 2. Decreased libido which may be related to the perimenopause and the vaginal dryness may be worsened by her Sjogren's syndrome. PLAN: 1. Pap smear cotest was performed. 2. Self breast awareness was discussed with the patient. We have also discussed symptoms associated with inflammatory breast cancer. 3. Screening mammogram will be done today. 4. Osteoporosis prevention was discussed. I have stressed the importance of adequate calcium, vitamin D and regular exercise. Recommended amounts of calcium and vitamin D were also discussed. 5. The patient will keep a menstrual calendar and call us greater menstrual problems. 6. We have had a long discussion regarding her decreased sex drive. Currently I cannot recommend medications or [id number] products help with this. She will avoid things that seemed to decrease her sex drive. I stressed importance of good nutrition, regular sleep and decreased stress levels. I recommended adequate lubrication for the vaginal dryness. 7. We have discussed control. She understands there is a theoretical risk of her getting since she still has menstrual periods. I have recommended that she consider additional control options including condoms until she has been amenorrheic for at least 12 months. 8. She was advised to return in one year for her annual well woman exam and as needed.
--- NOTE | 2023-04-19 07:37 | MM ---
Reason for Exam: Screening (asymptomatic). Last mammogram was performed 9 year(s) and 4 month(s) ago. Patient History: Menarche at age 10. First Full-Term at age 29. Late child-bearing (after 30). Premenopausal. Maternal grandmother had breast cancer, age 75. Last menstrual period: 02/26/2023 Risk Values: Ileana 5 year model risk: 1.4%. NCI Lifetime model risk: 13.6%. Prior Study Comparison: 12/09/2013 Bilateral Screening Mammogram, [facility]. 12/18/2013 Left Diagnostic Mammogram, [facility]. Tissue Density: There are scattered fibroglandular densities. Findings: Analyzed By CAD. There is no suspicious group of microcalcifications within either breast. No architectural distortion. No new suspicious masses in the left breast. Focal asymmetry at 6:00 in the right breast at middle depth. Overall Assessment: Incomplete: need additional imaging evaluation, BI-RAD 0 Management: Diagnostic Mammogram of the right breast. A clinical breast exam by your physician is recommended on an annual basis and results should be correlated with mammographic findings. [facility] will attempt to contact patient to return for supplemental views and ultrasound if indicated. Note on Ileana scores and lifetime risk: 1. A Ileana score greater than 3% is considered moderate risk. If this is the case, consider specialist referral to assess eligibility for a risk reducing agent. If overall lifetime risk for the development of breast cancer is 20% or higher, the patient may qualify for future screening with alternating mammogram and breast MRI. Electronically signed and approved by: Joseph Denney D.O.
== END ==
LOC: WWCWWP 08:22
PROVIDERS: ATTEND Obstetrics & Gynecology
DX: Z01.419 Encounter for gynecological examination (general) (routine) without abnormal findings (principal); M35.00 Sjogren syndrome, unspecified; K21.9 Gastro-esophageal reflux disease without esophagitis; Z80.3 Family history of malignant neoplasm of breast; Z12.31 Encounter for screening mammogram for malignant neoplasm of breast; Z88.5 Allergy status to narcotic agent; Z88.0 Allergy status to penicillin
CPT/HCPCS: 77063; 77067

== ENCOUNTER → 2023-05-04 | Outpatient (CLI) | payer BC ==
--- NOTE | 2023-05-04 10:35 | MM ---
Reason for Exam: Additional evaluation requested from abnormal screening. Last screening mammogram was performed less than 1 month ago. Patient History: Menarche at age 10. First Full-Term at age 29. Late child-bearing (after 30). Premenopausal. Maternal grandmother had breast cancer, age 75. Risk Values: Ileana 5 year model risk: 1.4%. NCI Lifetime model risk: 13.6%. Prior Study Comparison: 04/17/2023 Bilateral MG 3D screening mammo w/cad, [facility]. Tissue Density: Right: There are scattered fibroglandular densities. Findings: Analyzed By CAD. Density does improve although does persist at the approximate 1:00 position right breast 4.7 cm from the nipple and measuring 6 mm. Ultrasound is recommended. Overall Assessment: Incomplete: need additional imaging evaluation, BI-RAD 0 Management: Diagnostic Breast Ultrasound of the right breast. . Results were given to the patient verbally at the time of exam. Patient should continue monthly self-breast exams. A clinical breast exam by your physician is recommended on an annual basis. This exam should not preclude additional follow-up of suspicious palpable abnormalities. Note on Ileana scores and lifetime risk: 1. A Ileana score greater than 3% is considered moderate risk. If this is the case, consider specialist referral to assess eligibility for a risk reducing agent. 2. If overall lifetime risk for the development of breast cancer is 20% or higher, the patient may qualify for future screening with alternating mammogram and breast MRI. Electronically signed and approved by: Jabier Selby M.D. Radiologis
--- NOTE | 2023-05-04 11:06 | USB ---
Reason for Exam: Additional evaluation requested from abnormal screening. Patient History: Menarche at age 10. First Full-Term at age 29. Late child-bearing (after 30). Premenopausal. Maternal grandmother had breast cancer, age 75. Risk Values: Ileana 5 year model risk: 1.4%. NCI Lifetime model risk: 13.6%. Prior Study Comparison: 12/09/2013 Bilateral Screening Mammogram, [facility]. 12/18/2013 Left Diagnostic Mammogram, [facility]. 04/17/2023 Bilateral MG 3D screening mammo w/cad, [facility]. Findings: The upper section of the breast of the right breast, the axilla of the right breast and the retroareolar of the right breast were scanned. No solid or cystic masses are identified.. Overall Assessment: Probably benign, BI-RAD 3 Management: Diagnostic Mammogram of the right breast in 6 months. A clinical breast exam by your physician is recommended on an annual basis and results should be correlated with mammographic findings. This exam should not preclude additional follow-up of suspicious palpable abnormalities. Results were given to the patient verbally at the time of exam. Electronically signed and approved by: Jabier Selby M.D. Radiologis
== END | disposition home or self-care (01) ==
LOC: RADMAMWWP 10:06
PROVIDERS: ATTEND Obstetrics & Gynecology
DX: R92.8 Other abnormal and inconclusive findings on diagnostic imaging of breast (principal); Z80.3 Family history of malignant neoplasm of breast
CPT/HCPCS: 77061; 77065

== ENCOUNTER → 2025-03-10 | Outpatient (CLI) | payer BC ==
[2025-03-10 16:38] VITALS: BP 135/85; PULSE 64; RESP 16; TEMP 98.7
--- NOTE | 2025-03-10 17:12 | P.HPOB ---
History of Present Illness H&P Date: 03/10/25 Chief Complaint: The patient is here for her routine gynecologic exam This is a 49-year-old -0-2-1 with an LMP of June 2025. She has used withdrawal for control. Menstrual periods have been spacing out more and more. The 9-month stretch of amenorrhea is the longest she has gone without a menstrual period. She does have mild hot flashes and does seem to feel more tired. She is otherwise without gynecologic complaints. Review of Systems She has gained about 7 pounds over the past 2 years. She denies respiratory, cardiac, or GI problems. Past Medical History Past Medical History: GERD/Reflux, Neurologic Disorder Additional Past Medical History / Comment(s): sjogrens disease, hx migraines, pleurisy, superficial venous thrombosis 2007. PAST [employer] HISTORY: She has no history of STDs. History of Any Multi-Drug Resistant Organisms: None Reported Past Surgical History: Appendectomy, Bariatric Surgery Additional Past Surgical History / Comment(s): lap band- later removed, D&C, rt leg vein stripping and laser, leep procedure, COLONOSCOPY AND EGD sleeve gastrectomy 11-05-17 Past Anesthesia/Blood Transfusion Reactions: Motion Sickness Past Psychological History: No Psychological Hx Reported Smoking Status: Never smoker Past Alcohol Use History: Occasional (0-4 drinks per week.) Past Drug Use History: None Reported Additional History: She has been since 1999. 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 - Past Family History Father Family Medical History: Hypertension Additional Family Medical History / Comment(s): Paternal grandmother had uterine cancer. Mother Family Medical History: Diabetes Mellitus Additional Family Medical History / Comment(s): Maternal grandmother had breast cancer and diabetes. Medications and Allergies Home Medications Medication Instructions Recorded Confirmed Type Acetaminophen [Tylenol] 500 mg PO Q4-6H PRN 10/30/17 04/17/23 History Calcium Carbonate [Tums Ultra 470 mg PO 03/10/25 History Strength] Allergies Allergy/AdvReac Type Severity Reaction Status Date / Time codeine Allergy Dyspnea Verified 03/10/25 16:09 Penicillins Allergy Rash/Hives Verified 03/10/25 16:09 Exam Vital Signs Temp Pulse Resp BP Pulse Ox 03/10/25 16:12 98.7 F 64 16 135/85 99 Intake and Output 03/10/25 03/10/25 03/10/25 06:59 14:59 22:59 Other: Weight 85.275 kg Height 5 feet 6 inches, weight 188 pounds, BMI 30.3. This is a well-developed well-nourished white female who is alert and oriented times 3 in no acute distress. HEENT: Within normal limits. NECK: Supple without mass or thyromegaly. CHEST AND LUNGS: Clear to auscultation. HEART: Regular rate and rhythm. BREASTS: Are without mass or discharge. AXILLARY EXAM: Negative for adenopathy. BACK: Negative for CVA tenderness. ABDOMEN: Soft, nontender, without palpable masses. PELVIC EXAM: Normal external genitalia. Cervix and vagina appear normal. There is no unusual discharge. There is no evidence of prolapse. The uterus is midposition, nongravid size and nontender. There are no palpable adnexal masses or tenderness. RECTAL EXAM: Rectovaginal exam is negative for mass or tenderness and is negative for occult blood. EXTREMITIES: Nontender. IMPRESSION: 1. 49-year-old perimenopausal female with increasing oligomenorrhea and mild vasomotor symptoms. 2. Normal gynecologic exam. PLAN: 1. Pap smear was deferred since she had a negative Pap smear cotest on 04/17/2023. 2. Self breast awareness was discussed with the patient. We have also discussed symptoms associated with inflammatory breast cancer. 3. Screening mammogram is scheduled for 03/17/2025 and the order slip was given to the patient for this. 4. Osteoporosis prevention was discussed. I have stressed the importance of adequate calcium, vitamin D and regular exercise. Recommended amounts of calcium and vitamin D were also discussed. 5. She will keep a menstrual calendar and call if menstrual problems. She was also instructed to call if she develops any bleeding after 12 months of amenorrhea. Menopausal changes and symptoms were reviewed. Suggestions were given for symptoms. 6. She believes she is due for a colonoscopy. She will try to arrange this through her PCP. 7. She was advised to return in one year for her annual well woman exam.
== END ==
LOC: WWCWWP 15:44
PROVIDERS: ATTEND Obstetrics & Gynecology
DX: Z01.419 Encounter for gynecological examination (general) (routine) without abnormal findings (principal); N91.5 Oligomenorrhea, unspecified; N95.1 Menopausal and female climacteric states; Z88.0 Allergy status to penicillin; Z88.5 Allergy status to narcotic agent

== ENCOUNTER → 2025-03-17 | Outpatient (CLI) | payer BC ==
--- NOTE | 2025-03-17 07:44 | MM ---
Reason for Exam: Screening (asymptomatic). Last mammogram was performed 1 year(s) and 11 month(s) ago. Patient History: Menarche at age 10. First Full-Term at age 29. Late child-bearing (after 30). Premenopausal. Maternal grandmother had breast cancer, age 75. Risk Values: Ileana 5 year model risk: 1.5%. NCI Lifetime model risk: 13.3%. Prior Study Comparison: 12/18/2013 Left Diagnostic Mammogram, [facility]. 04/17/2023 Bilateral MG 3D screening mammo w/cad, [facility]. 05/04/2023 Right MG 3D work up w/cad RT, [facility]. Tissue Density: There are scattered areas of fibroglandular density. Findings: Analyzed By CAD. There is no suspicious group of microcalcifications or new suspicious mass in either breast. Overall Assessment: Negative, BI-RAD 1 Management: Screening Mammogram of both breasts in 1 year. Patient should continue monthly self-breast exams. A clinical breast exam by your physician is recommended on an annual basis. This exam should not preclude additional follow-up of suspicious palpable abnormalities. Note on Ileana scores and lifetime risk: 1. A Ileana score greater than 3% is considered moderate risk. If this is the case, consider specialist referral to assess eligibility for a risk reducing agent. 2. If overall lifetime risk for the development of breast cancer is 20% or higher, the patient may qualify for future screening with alternating mammogram and breast MRI. [facility], , 03/17/2025 7:41 AM. Electronically signed and approved by: Shaila Luz M.D. Radiologist
== END | disposition home or self-care (01) ==
LOC: RADMAMWWP 06:50
PROVIDERS: ATTEND Obstetrics & Gynecology
DX: Z12.31 Encounter for screening mammogram for malignant neoplasm of breast (principal); R92.323 Mammographic fibroglandular density, bilateral breasts; Z80.3 Family history of malignant neoplasm of breast
CPT/HCPCS: 77063; 77067